=== PATIENT | female | born 1940 | race Caucasian/White ===

== ENCOUNTER → 2017-11-15 | Outpatient (CLI) | payer MEDICARE, BC ==
[~2017-11-15] MED LIST: ALEN70TA5 PO; bp med
== END | disposition home or self-care (01) ==
LOC: CFH 14:14 → EDSTATUS 15:30
PROVIDERS: ATTEND Internal Medicine Nephrology
DX: N28.1 Cyst of kidney, acquired (principal); N18.9 Chronic kidney disease, unspecified
CPT/HCPCS: 76770

== ENCOUNTER 2017-11-30 12:05 | Day surgery (SDC) | payer BC, MEDICARE ==
[~2017-11-30] VITALS: Ht 160 cm; Wt 66.1 kg
[2017-11-30] MEDS ORDERED: SODIUM CHLORIDE 0.9% 1,000 ML IV SCH (12:25)
[2017-11-30 12:31] VITALS: BP 166/77
[2017-11-30 13:00] LABS: PROTHROMBIN TIME 10.3 Seconds (9.6-11.5)
[2017-11-30] MEDS ORDERED: LIDOCAINE-MPF 1%, 5ML ONE (14:26)
[2017-11-30] MEDS ORDERED: FENTANYL PF 100 MCG/2ML ONE (14:32)
[2017-11-30] MEDS ORDERED: FLUMAZENIL 0.1 MG/1 ML, 5ML ONE (14:32)
[2017-11-30] MEDS ORDERED: NALOXONE 1 MG/ML, 2ML ONE (14:32)
[2017-11-30] MEDS ORDERED: MIDAZOLAM 1 MG/ML, 5ML ONE ×2 (14:32)
== END 2017-11-30 16:30 | disposition home or self-care (01) ==
LOC: OUT 12:05
PROVIDERS: ATTEND Internal Medicine Nephrology
DX: N26.9 Renal sclerosis, unspecified (principal); E11.22 Type 2 diabetes mellitus with diabetic chronic kidney disease; I12.9 Hypertensive chronic kidney disease with stage 1 through stage 4 chronic kidney disease, or unspecified chronic kidney disease; N18.9 Chronic kidney disease, unspecified; Z94.0 Kidney transplant status
CPT/HCPCS: 36415; 50200; 77012; 85610; 88300; 88329; 99156; 99157; J2250; J3010; J7030; J2310

== ENCOUNTER 2018-01-28 05:13 | Day surgery (SDC) | payer BC, MEDICARE ==
[~2018-01-28] VITALS: Ht 160 cm; Wt 59.6 kg
[2018-01-28] MEDS ORDERED: SODIUM CHLORIDE 0.9% 1,000 ML IV SCH (06:04)
[2018-01-28] MEDS ORDERED: ATOR40TA78 PO (06:19)
[2018-01-28] MEDS ORDERED: LIRA0.6P2 SQ (06:19)
[2018-01-28] MEDS ORDERED: ACAR100T9 PO (06:19)
[2018-01-28] MEDS ORDERED: FURO20TA3 PO (06:19)
[2018-01-28] MEDS ORDERED: LOSARTAN PO (06:19)
[2018-01-28 06:24] VITALS: BP 173/108
[2018-01-28] MEDS ORDERED: MIDAZOLAM 1 MG/ML, 2ML IV PRN (07:00)
[2018-01-28] MEDS ORDERED: INSULIN REGULAR 100 UNITS/ML, 3ML VIAL SQ-INSULIN ONE (07:00)
[2018-01-28] MEDS ORDERED: EPHEDRINE 50 MG/ML, 1ML IM PRN (07:00)
[2018-01-28] MEDS ORDERED: ONDANSETRON 2MG/ML, 2ML IV PRN (07:00)
[2018-01-28] MEDS ORDERED: FENTANYL PF 100 MCG/2ML IV PRN (07:00)
[2018-01-28] MEDS ORDERED: METOCLOPRAMIDE 5 MG/ML, 2ML IV PRN (07:00)
[2018-01-28] MEDS ORDERED: INSULIN SINGLE DOSE, ER SQ-INSULIN ONE ×2 (07:02→07:04)
[2018-01-28] MEDS ORDERED: LIDOCAINE 2% 100MG/5ML SYRINGE ONE (07:08)
[2018-01-28] MEDS ORDERED: PROPOFOL 10 MG/ML, 20ML ONE (07:08)
[2018-01-28] MEDS ORDERED: MIDAZOLAM 1 MG/ML, 2ML ONE (07:08)
[2018-01-28] MEDS ORDERED: HEPARIN 1,000 UNITS/ML, 10ML ONE (07:10)
[2018-01-28] MEDS ORDERED: PROTAMINE SULFATE 10 MG/ML, 5ML ONE (07:10)
[2018-01-28] MEDS ORDERED: THROMBIN 5,000 UNIT VIAL TP ONE (07:10)
[2018-01-28] MEDS ORDERED: BUPIVACAINE/PF-EPI 0.5% 1:200K ONE (07:10)
[2018-01-28 07:16] LABS: INTERNATIONAL NORMALIZED RATIO 0.98 (0.93-1.1); PROTHROMBIN TIME 10.4 Seconds (9.6-11.5)
[2018-01-28] MEDS ORDERED: LIDOCAINE/PF 1%, 30ML ONE (07:23)
[2018-01-28] MEDS ORDERED: CEFAZOLIN 1,000 MG ONE (07:24)
[2018-01-28] MEDS ORDERED: LIDOCAINE-MPF 2% ,5ML ONE (07:24)
[2018-01-28] MEDS ORDERED: GLYCOPYRROLATE 0.2MG/1ML, 5ML ONE (07:24)
[2018-01-28] MEDS ORDERED: DEXAMETHASONE 4 MG/ML, 1ML ONE (07:24)
[2018-01-28] MEDS ORDERED: LABETALOL 20 MG/4 ML ONE (09:01)
[2018-01-28] MEDS: LABETALOL 5MG/ML, 20ML IV PRN ×2 (09:02→09:11)
[2018-01-28] MEDS ORDERED: hydrALAzine 20 MG/ML, 1ML ONE (09:22)
[2018-01-28] MEDS ORDERED: hydrALAzine 20 MG/ML, 1ML IV PRN (09:30)
== END 2018-01-28 11:25 | disposition home or self-care (01) ==
LOC: OUT 05:13
PROVIDERS: ATTEND Surgery Vascular Surgery
DX: E11.22 Type 2 diabetes mellitus with diabetic chronic kidney disease (principal); I13.2 Hypertensive heart and chronic kidney disease with heart failure and with stage 5 chronic kidney disease, or end stage renal disease; I50.9 Heart failure, unspecified; N18.6 End stage renal disease
CPT/HCPCS: 36415; 36821; 80047; 82962; 85610; 85730; 93005; J0360; J0690; J1100; J1644; J2250; J2704; J3490; J7030; J2720

== ENCOUNTER 2019-01-13 05:08 | Inpatient (IN) | payer BC, MEDICARE ==
[~2019-01-13] VITALS: Ht 157.5 cm; Wt 64.0 kg
[2019-01-13] VITALS (12 sets, daily range): BP systolic 142–192; BP diastolic 61–92
[~2019-01-13 05:08] MED LIST changes: +ACAR100T9 PO; -ALEN70TA5 PO; +ALEN70TA6 PO; +ATOR40TA78 PO; +FURO20TA3 PO; +LIRA0.6P2 SQ; +LOSARTAN PO
[2019-01-13] MEDS ORDERED: PANTOPRAZOLE 80 MG in SODIUM CHLORIDE 0.9% 100 ML IV SCH (05:15)
[2019-01-13] MEDS ORDERED: SODIUM CHLORIDE FLUSH 10ML SYR IVF ONE (05:30)
[2019-01-13] MEDS ORDERED: FENTANYL PF 100 MCG/2ML ONE (05:45)
--- NOTE | 2019-01-13 05:52 | NUR ---
Patient brought to room by [facility]. Patient transferred from [facility] for a diagnosed GI Bleed. Patient reports having black tarry stool for two weeks. [facility] reports that [facility]'s emergency room gave the patient insulin with D50 for an elevated potassium. Patient was also given 2 grams Calcium Chloride, and a unit of O+ blood was initiated. Patient has a history of chronic kidney disease, and was last dialyzed on sunday. Patient is alert and oriented but reports pain in her abdomen. Patient was attached to a monitor, blood pressure, heart rate and pulsatile oxygen all within normal limits (see triage flowsheet) additional IV started by charge account identification clerk, labs drawn. Awaiting results.
[2019-01-13] MEDS ORDERED: FENTANYL PF 100 MCG/2ML IVPush ONE ×2 (06:00→09:30)
[2019-01-13 06:04] LABS: INTERNATIONAL NORMALIZED RATIO 1.08 (0.93-1.1); PROTHROMBIN TIME 11.3 Seconds (9.6-11.5)
[2019-01-13 06:06] LABS: ALANINE AMINOTRANSFERASE 28 U/L (12-78); ALBUMIN 2.7 g/dL (3.4-5.0); ANION GAP 16 mmol/L (5-15); CALCIUM 8.8 mg/dL (8.5-10.1); CHLORIDE 101 mmol/L (98-107)
[2019-01-13 06:08] LABS: ALKALINE PHOSPHATASE 88 U/L (45-117); BILIRUBIN,TOTAL 0.4 mg/dL (0.2-1.0); TOTAL PROTEIN 5.6 g/dL (6.4-8.2)
--- NOTE | 2019-01-13 06:40 | NUR ---
RN returned to bedside, blood unit has finished infusing. Vital signs taken, wnl. (see Vitals[employer]s flowsheet at ~0630)
[2019-01-13 06:54] LABS: MEAN CORPUSCULAR HEMOGLOBIN 30.5 pg (27.0-34.8); MEAN CORPUSCULAR VOLUME 92.5 fL (80-100); MEAN PLATELET VOLUME 7.6 fL (7.4-10.4); PLATELET COUNT 186 x10^3/uL (130-400); RED BLOOD COUNT 2.25 x10^6/uL (3.82-5.3); RED CELL DISTRIBUTION WIDTH 31.3 % (9.6-15.2)
--- NOTE | 2019-01-13 06:56 | NUR ---
REPORT RECEIVED FROM VIC ROJO.
[2019-01-13] MEDS ORDERED: ALBUTEROL SULFATE 2.5 MG/3 ML NPPB ONE (07:00)
[2019-01-13] MEDS ORDERED: CALCIUM GLUCONATE 4.6 MEQ/10 ML IVPush ONE (07:00)
--- NOTE | 2019-01-13 07:08 | NUR ---
bg 103 at this time.
[2019-01-13 07:09] LABS: BASOPHILS # (AUTO) 0.04 x10^3/uL (0-0.1); BASOPHILS % (AUTO) 1 % (0-1); EOSINOPHILS # (AUTO) 0.18 x10^3/uL (0-0.4); EOSINOPHILS % (AUTO) 3 % (1-7); LYMPHOCYTES # (AUTO) 2.24 x10^3/uL (1-3.4); LYMPHOCYTES % (AUTO) 32 % (22-44); MD SCAN; MONOCYTES # (AUTO) 0.42 x10^3/uL (0.2-0.8); MONOCYTES % (AUTO) 6 % (2-9); NEUTROPHILS # (AUTO) 4.13 x10^3/uL (1.8-6.8); NEUTROPHILS % (AUTO) 59 % (42-75)
[2019-01-13] MEDS ORDERED: ALBUTEROL SULFATE 2.5 MG/3 ML ONE (07:14)
[2019-01-13] MEDS ORDERED: CALCIUM GLUCONATE 4.6 MEQ/10 ML ONE (07:38)
--- NOTE | 2019-01-13 07:49 | NUR ---
pt medicated per emar. pt tolerated well.
[2019-01-13] MEDS ORDERED: ARANESP 100 MCG/ML **ESRD SQ SCH (08:00)
[2019-01-13] MEDS ORDERED: ONDANSETRON 2MG/ML, 2ML IVPush PRN (09:00)
[2019-01-13] MEDS: FENTANYL PF 100 MCG/2ML IV PRN ×2 (09:06→14:15)
[2019-01-13] MEDS: ACETAMINOPHEN 325 MG TABLET PO PRN ×2 (09:13→20:45)
[2019-01-13 09:14] LABS: ANION GAP 13 mmol/L (5-15); CALCIUM 8.8 mg/dL (8.5-10.1); CHLORIDE 105 mmol/L (98-107); CREATININE 5.09 mg/dL (0.55-1.02)
[2019-01-13 09:43] LABS: MEAN CORPUSCULAR HEMOGLOBIN 31.9 pg (27.0-34.8); MEAN CORPUSCULAR HGB CONC 34.5 g/dL (32.4-35.8); MEAN CORPUSCULAR VOLUME 92.4 fL (80-100); MEAN PLATELET VOLUME 6.8 fL (7.4-10.4); PLATELET COUNT 174 x10^3/uL (130-400); RED BLOOD COUNT 1.87 x10^6/uL (3.82-5.3); RED CELL DISTRIBUTION WIDTH 31.8 % (9.6-15.2)
[2019-01-13 09:48] LABS: BASOPHILS # (AUTO) 0.04 x10^3/uL (0-0.1); BASOPHILS % (AUTO) 1 % (0-1); EOSINOPHILS # (AUTO) 0.19 x10^3/uL (0-0.4); EOSINOPHILS % (AUTO) 4 % (1-7); LYMPHOCYTES # (AUTO) 1.69 x10^3/uL (1-3.4); LYMPHOCYTES % (AUTO) 31 % (22-44); MD SCAN; MONOCYTES # (AUTO) 0.24 x10^3/uL (0.2-0.8); MONOCYTES % (AUTO) 4 % (2-9); NEUTROPHILS # (AUTO) 3.38 x10^3/uL (1.8-6.8); NEUTROPHILS % (AUTO) 61 % (42-75)
[2019-01-13] MEDS ORDERED: LABETALOL 5MG/ML, 20ML IVPush PRN (14:00)
[2019-01-13 15:14] LABS: MEAN CORPUSCULAR HEMOGLOBIN 31.4 pg (27.0-34.8); MEAN CORPUSCULAR HGB CONC 34.3 g/dL (32.4-35.8); MEAN CORPUSCULAR VOLUME 91.6 fL (80-100); MEAN PLATELET VOLUME 6.9 fL (7.4-10.4); PLATELET COUNT 148 x10^3/uL (130-400); RED BLOOD COUNT 1.96 x10^6/uL (3.82-5.3)
[2019-01-13 15:21] LABS: ALANINE AMINOTRANSFERASE 24 U/L (12-78); ALBUMIN 2.3 g/dL (3.4-5.0); ANION GAP 7 mmol/L (5-15); CALCIUM 8.2 mg/dL (8.5-10.1); CHLORIDE 107 mmol/L (98-107)
[2019-01-13 15:23] LABS: ALKALINE PHOSPHATASE 53 U/L (45-117); BILIRUBIN,TOTAL 0.5 mg/dL (0.2-1.0); TOTAL PROTEIN 4.6 g/dL (6.4-8.2)
[2019-01-13 15:25] LABS: ALBUMIN 2.3 g/dL (3.4-5.0); ANION GAP 8 mmol/L (5-15); CHLORIDE 107 mmol/L (98-107); CREATININE 2.79 mg/dL (0.55-1.02)
[2019-01-13 16:24] LABS: BASOPHILS # (AUTO) 0.04 x10^3/uL (0-0.1); BASOPHILS % (AUTO) 1 % (0-1); EOSINOPHILS # (AUTO) 0.19 x10^3/uL (0-0.4); EOSINOPHILS % (AUTO) 3 % (1-7); LYMPHOCYTES # (AUTO) 1.81 x10^3/uL (1-3.4); LYMPHOCYTES % (AUTO) 32 % (22-44); MD SCAN; MONOCYTES # (AUTO) 0.35 x10^3/uL (0.2-0.8); MONOCYTES % (AUTO) 6 % (2-9); NEUTROPHILS # (AUTO) 3.31 x10^3/uL (1.8-6.8); NEUTROPHILS % (AUTO) 58 % (42-75)
[2019-01-13] MEDS ORDERED: POTASSIUM CHLORIDE 20 MEQ in SODIUM CHLORIDE 0.9% 250 ML IV ONE (17:00)
[2019-01-13] MEDS ORDERED: DEXTROSE 50%, 50ML SYRINGE IVPush PRN (17:00)
[2019-01-13] MEDS ORDERED: DEXTROSE 4 GM TAB.CHEW PO PRN (17:00)
[2019-01-13] MEDS ORDERED: POTASSIUM CHLORIDE 20 MEQ TAB.ER.PRT PO ONE (17:00)
[2019-01-13] MEDS ORDERED: GLUCAGON 1 MG IM PRN (17:00)
[2019-01-13] MEDS: PANTOPRAZOLE 80 MG in SODIUM CHLORIDE 0.9% 100 ML IV SCH (17:50)
[2019-01-13] MEDS: FUROSEMIDE 40 MG TABLET PO SCH (20:45)
[2019-01-13] MEDS: SODIUM CHLORIDE FLUSH 10ML SYR IVF SCH (20:45)
[2019-01-13] MEDS: INSULIN LISPRO 100 UNITS/ML, PEN SQ-INSULIN SCH (20:49)
[2019-01-14 01:02] VITALS: BP 160/74
[2019-01-14] MEDS: PANTOPRAZOLE 80 MG in SODIUM CHLORIDE 0.9% 100 ML IV SCH (03:35)
[2019-01-14] MEDS: FENTANYL PF 100 MCG/2ML IV PRN (04:02)
[2019-01-14 05:33] LABS: ANION GAP 9 mmol/L (5-15); CALCIUM 8.4 mg/dL (8.5-10.1); CHLORIDE 107 mmol/L (98-107); CREATININE 3.88 mg/dL (0.55-1.02)
[2019-01-14 07:40] VITALS: BP 141/52
[2019-01-14] MEDS: LOSARTAN 50MG TABLET PO SCH (08:05)
[2019-01-14] MEDS: FUROSEMIDE 40 MG TABLET PO SCH ×2 (08:05→20:30)
[2019-01-14] MEDS: SODIUM CHLORIDE FLUSH 10ML SYR IVF SCH ×2 (08:05→20:31)
[2019-01-14] MEDS: ATORVASTATIN 20 MG TABLET PO SCH (08:05)
[2019-01-14] MEDS: INSULIN LISPRO 100 UNITS/ML, PEN SQ-INSULIN SCH ×4 (08:18→20:31)
[2019-01-14] MEDS ORDERED: hydrALAzine 20 MG/ML, 1ML ONE (08:39)
[2019-01-14] MEDS ORDERED: ONDANSETRON 2MG/ML, 2ML ONE (08:39)
[2019-01-14] MEDS ORDERED: KETAMINE 10 MG/ML, 20ML ONE (08:39)
[2019-01-14] MEDS ORDERED: HALOPERIDOL 5 MG/ML ONE (09:04)
[2019-01-14] MEDS ORDERED: FENTANYL PF 100 MCG/2ML ONE (09:04)
[2019-01-14] MEDS ORDERED: HALOPERIDOL 5 MG/ML IV PRN (09:30)
[2019-01-14] MEDS ORDERED: HYDROmorphone 2 MG/ML, 1ML IVPush PRN (09:30)
[2019-01-14] MEDS ORDERED: FENTANYL PF 100 MCG/2ML IV PRN (09:30)
[2019-01-14] MEDS ORDERED: MEPERIDINE/PF 25MG/ML,1ML IVPush PRN (09:30)
[2019-01-14] MEDS ORDERED: hydrALAzine 20 MG/ML, 1ML IV PRN (09:30)
[2019-01-14 10:12] VITALS: BP 142/53
[2019-01-14] MEDS: ACETAMINOPHEN 325 MG TABLET PO PRN ×2 (12:21→18:45)
[2019-01-14 13:31] VITALS: BP 156/72
[2019-01-14 19:30] VITALS: BP 152/76
[2019-01-14] MEDS: PANTOPRAZOLE 40 MG IV IVPush SCH (20:30)
[2019-01-15] VITALS (8 sets, daily range): BP systolic 147–187; BP diastolic 55–77
[2019-01-15] MEDS: ACETAMINOPHEN 325 MG TABLET PO PRN ×5 (00:13→22:17)
[2019-01-15 05:27] LABS: ANION GAP 14 mmol/L (5-15); CALCIUM 8.4 mg/dL (8.5-10.1); CHLORIDE 106 mmol/L (98-107); CREATININE 5.34 mg/dL (0.55-1.02)
[2019-01-15 05:28] LABS: MEAN CORPUSCULAR HEMOGLOBIN 31.4 pg (27.0-34.8); MEAN CORPUSCULAR HGB CONC 34.3 g/dL (32.4-35.8); MEAN CORPUSCULAR VOLUME 91.5 fL (80-100); MEAN PLATELET VOLUME 6.9 fL (7.4-10.4); PLATELET COUNT 166 x10^3/uL (130-400); RED BLOOD COUNT 2.34 x10^6/uL (3.82-5.3); RED CELL DISTRIBUTION WIDTH 24.3 % (9.6-15.2)
[2019-01-15 05:52] LABS: BASOPHILS # (AUTO) 0.04 x10^3/uL (0-0.1); BASOPHILS % (AUTO) 1 % (0-1); EOSINOPHILS # (AUTO) 0.37 x10^3/uL (0-0.4); EOSINOPHILS % (AUTO) 5 % (1-7); LYMPHOCYTES # (AUTO) 2.35 x10^3/uL (1-3.4); LYMPHOCYTES % (AUTO) 33 % (22-44); MD SCAN; MONOCYTES # (AUTO) 0.46 x10^3/uL (0.2-0.8); MONOCYTES % (AUTO) 6 % (2-9); NEUTROPHILS % (AUTO) 56 % (42-75)
[2019-01-15] MEDS: INSULIN LISPRO 100 UNITS/ML, PEN SQ-INSULIN SCH ×4 (09:00→20:52)
[2019-01-15] MEDS: FUROSEMIDE 40 MG TABLET PO SCH ×2 (09:03→20:52)
[2019-01-15] MEDS: LOSARTAN 50MG TABLET PO SCH (09:04)
[2019-01-15] MEDS: PANTOPRAZOLE 40 MG IV IVPush SCH ×2 (09:05→20:52)
[2019-01-15] MEDS: SODIUM CHLORIDE FLUSH 10ML SYR IVF SCH ×2 (09:10→20:52)
[2019-01-15] MEDS: ATORVASTATIN 20 MG TABLET PO SCH (20:52)
[2019-01-15] MEDS: hydrALAzine 20 MG/ML, 1ML IVPush PRN (22:32)
[2019-01-16 00:31] VITALS: BP 130/57
[2019-01-16 04:41] LABS: MEAN CORPUSCULAR HEMOGLOBIN 30.7 pg (27.0-34.8); MEAN CORPUSCULAR HGB CONC 33.9 g/dL (32.4-35.8); MEAN CORPUSCULAR VOLUME 90.6 fL (80-100); PLATELET COUNT 150 x10^3/uL (130-400); RED BLOOD COUNT 2.46 x10^6/uL (3.82-5.3); RED CELL DISTRIBUTION WIDTH 25.1 % (9.6-15.2)
[2019-01-16 04:53] LABS: ANION GAP 7 mmol/L (5-15); CALCIUM 7.8 mg/dL (8.5-10.1); CHLORIDE 106 mmol/L (98-107); CREATININE 3.04 mg/dL (0.55-1.02)
[2019-01-16 05:43] LABS: BASOPHILS # (AUTO) 0.03 x10^3/uL (0-0.1); BASOPHILS % (AUTO) 1 % (0-1); EOSINOPHILS # (AUTO) 0.25 x10^3/uL (0-0.4); EOSINOPHILS % (AUTO) 4 % (1-7); LYMPHOCYTES # (AUTO) 1.52 x10^3/uL (1-3.4); LYMPHOCYTES % (AUTO) 27 % (22-44); MD SCAN; MONOCYTES # (AUTO) 0.34 x10^3/uL (0.2-0.8); MONOCYTES % (AUTO) 6 % (2-9); NEUTROPHILS # (AUTO) 3.56 x10^3/uL (1.8-6.8); NEUTROPHILS % (AUTO) 63 % (42-75)
[2019-01-16] MEDS: OMEPRAZOLE 20 MG CAPSULE.DR PO SCH ×2 (06:13→16:17)
[2019-01-16 07:32] VITALS: BP 150/63
[2019-01-16] MEDS: INSULIN LISPRO 100 UNITS/ML, PEN SQ-INSULIN SCH ×4 (08:56→20:46)
[2019-01-16] MEDS: SODIUM CHLORIDE FLUSH 10ML SYR IVF SCH ×2 (08:57→20:51)
[2019-01-16] MEDS: LOSARTAN 50MG TABLET PO SCH (08:57)
[2019-01-16] MEDS: FUROSEMIDE 40 MG TABLET PO SCH ×2 (08:57→20:51)
[2019-01-16] MEDS: ATORVASTATIN 20 MG TABLET PO SCH (08:58)
[2019-01-16] MEDS: ACETAMINOPHEN 325 MG TABLET PO PRN ×2 (12:11→20:59)
[2019-01-16 13:04] VITALS: BP 161/61
[2019-01-16] MEDS ORDERED: GOLYTELY 4,000ML ORAL.SOL PO ONE (17:00)
[2019-01-16 20:22] VITALS: BP 180/89
[2019-01-16] MEDS: hydrALAzine 20 MG/ML, 1ML IVPush PRN (20:50)
[2019-01-16 22:26] VITALS: BP 186/66
[2019-01-16] MEDS ORDERED: LABETALOL 5 MG/ML SYR. (IV ONLY) IVPush PRN (23:00)
[2019-01-17] VITALS (8 sets, daily range): BP systolic 155–182; BP diastolic 62–72
[2019-01-17] MEDS: OMEPRAZOLE 20 MG CAPSULE.DR PO SCH ×2 (01:06→15:51)
[2019-01-17] MEDS: ACETAMINOPHEN 325 MG TABLET PO PRN ×3 (01:13→21:09)
[2019-01-17 06:48] LABS: MEAN CORPUSCULAR HEMOGLOBIN 30.6 pg (27.0-34.8); MEAN CORPUSCULAR HGB CONC 33.1 g/dL (32.4-35.8); MEAN CORPUSCULAR VOLUME 92.3 fL (80-100); MEAN PLATELET VOLUME 6.7 fL (7.4-10.4); PLATELET COUNT 173 x10^3/uL (130-400); RED BLOOD COUNT 2.56 x10^6/uL (3.82-5.3); RED CELL DISTRIBUTION WIDTH 25.9 % (9.6-15.2)
[2019-01-17 07:00] LABS: ANION GAP 9 mmol/L (5-15); CALCIUM 8.4 mg/dL (8.5-10.1); CHLORIDE 105 mmol/L (98-107); CREATININE 4.34 mg/dL (0.55-1.02)
[2019-01-17] MEDS: INSULIN LISPRO 100 UNITS/ML, PEN SQ-INSULIN SCH ×4 (07:42→21:00)
[2019-01-17] MEDS: SODIUM CHLORIDE FLUSH 10ML SYR IVF SCH ×2 (07:42→21:10)
[2019-01-17 07:48] LABS: MD MORPH REVIEW ONLY
[2019-01-17 07:49] LABS: BASOPHILS # (AUTO) 0.02 x10^3/uL (0-0.1); BASOPHILS % (AUTO) 1 % (0-1); EOSINOPHILS # (AUTO) 0.28 x10^3/uL (0-0.4); EOSINOPHILS % (AUTO) 6 % (1-7); LYMPHOCYTES # (AUTO) 0.69 x10^3/uL (1-3.4); LYMPHOCYTES % (AUTO) 16 % (22-44); MONOCYTES # (AUTO) 0.42 x10^3/uL (0.2-0.8); MONOCYTES % (AUTO) 9 % (2-9); NEUTROPHILS # (AUTO) 3.01 x10^3/uL (1.8-6.8); NEUTROPHILS % (AUTO) 68 % (42-75)
[2019-01-17 07:50] LABS: ANISOCYTOSIS 2+; HYPOCHROMIA 1+; POLYCHROMASIA 1+
[2019-01-17 07:51] LABS: <PLATELET ESTIMATE> ADEQUATE; <PLT MORPHOLOGY> NORMAL PLT MORPH; OVALOCYTES 1+; SPHEROCYTES 1+
[2019-01-17] MEDS: hydrALAzine 20 MG/ML, 1ML IVPush PRN ×2 (08:52→21:10)
[2019-01-17] MEDS: ATORVASTATIN 20 MG TABLET PO SCH (09:00)
[2019-01-17] MEDS: LOSARTAN 50MG TABLET PO SCH (09:00)
[2019-01-17] MEDS: FUROSEMIDE 40 MG TABLET PO SCH ×2 (09:00→21:10)
[2019-01-17] MEDS ORDERED: PROPOFOL 50 ML ONE (09:52)
[2019-01-17] MEDS ORDERED: PROPOFOL 10 MG/ML, 20ML ONE (10:25)
[2019-01-17] MEDS ORDERED: PROMETHAZINE 25 MG/ML, 1ML IV PRN (11:00)
[2019-01-17] MEDS ORDERED: DIAZEPAM 5 MG/ML, 2ML IVPush PRN (11:00)
[2019-01-17] MEDS ORDERED: PROMETHAZINE 12.5 MG SUPP PR PRN (11:00)
[2019-01-17] MEDS ORDERED: LABETALOL 5MG/ML, 20ML IV PRN (11:00)
[2019-01-17] MEDS ORDERED: MIDAZOLAM 1 MG/ML, 2ML IV PRN (11:00)
[2019-01-17] MEDS ORDERED: HYDROmorphone 2 MG/ML, 1ML IVPush PRN (11:00)
[2019-01-17] MEDS ORDERED: ALBUTEROL SULFATE 2.5 MG/3 ML NPPB PRN (11:00)
[2019-01-17] MEDS ORDERED: OXYcodone 5 MG/5 ML ORAL.SOL UDC PO PRN (11:00)
[2019-01-17] MEDS: SUCRALFATE 1 GM/10 ML UDC PO SCH ×3 (11:00→21:10)
[2019-01-17] MEDS ORDERED: FENTANYL PF 100 MCG/2ML IV PRN (11:00)
[2019-01-17] MEDS ORDERED: EPHEDRINE 50 MG/ML, 1ML IVPush PRN (11:00)
[2019-01-17] MEDS ORDERED: HALOPERIDOL 5 MG/ML IV PRN (11:00)
[2019-01-17] MEDS ORDERED: ONDANSETRON ODT 8 MG PO PRN (11:00)
[2019-01-17] MEDS ORDERED: hydrALAzine 20 MG/ML, 1ML IV PRN (11:00)
[2019-01-17] MEDS ORDERED: ONDANSETRON 2MG/ML, 2ML IV PRN (11:00)
[2019-01-17] MEDS ORDERED: MEPERIDINE/PF 25MG/ML,1ML IVPush PRN (11:00)
[2019-01-17] MEDS ORDERED: FENTANYL PF 100 MCG/2ML IV ONE (13:00)
[2019-01-18] VITALS (7 sets, daily range): BP systolic 148–186; BP diastolic 67–79
[2019-01-18] MEDS: FENTANYL PF 100 MCG/2ML IV PRN ×2 (01:52→21:08)
[2019-01-18] MEDS: OMEPRAZOLE 20 MG CAPSULE.DR PO SCH ×2 (06:13→16:59)
[2019-01-18 06:37] LABS: ANION GAP 6 mmol/L (5-15); CALCIUM 8.4 mg/dL (8.5-10.1); CHLORIDE 108 mmol/L (98-107); CREATININE 3.07 mg/dL (0.55-1.02)
[2019-01-18] MEDS: INSULIN LISPRO 100 UNITS/ML, PEN SQ-INSULIN SCH ×4 (07:00→20:23)
[2019-01-18] MEDS: SUCRALFATE 1 GM/10 ML UDC PO SCH ×4 (08:39→20:30)
[2019-01-18] MEDS: FUROSEMIDE 40 MG TABLET PO SCH ×2 (08:39→20:30)
[2019-01-18] MEDS: SODIUM CHLORIDE FLUSH 10ML SYR IVF SCH ×2 (08:39→20:30)
[2019-01-18] MEDS: LOSARTAN 50MG TABLET PO SCH (08:39)
[2019-01-18] MEDS: ATORVASTATIN 20 MG TABLET PO SCH (08:39)
[2019-01-18] MEDS ORDERED: SUCR1TAB PO (12:36)
[2019-01-18] MEDS ORDERED: OMEP-110 PO (12:36)
[2019-01-18] MEDS: CARVEDILOL 6.25 MG TABLET PO SCH (17:00)
[2019-01-18] MEDS: ACETAMINOPHEN 325 MG TABLET PO PRN (18:28)
[2019-01-19 01:27] VITALS: BP 184/72
[2019-01-19] MEDS: hydrALAzine 20 MG/ML, 1ML IVPush PRN (01:34)
[2019-01-19 02:00] VITALS: BP 148/77
[2019-01-19] MEDS: OMEPRAZOLE 20 MG CAPSULE.DR PO SCH (04:37)
[2019-01-19] MEDS: CARVEDILOL 6.25 MG TABLET PO SCH (04:38)
[2019-01-19 04:40] VITALS: BP 176/77
[2019-01-19 06:33] LABS: CHLORIDE 107 mmol/L (98-107)
[2019-01-19 06:39] LABS: ANION GAP 8 mmol/L (5-15); CALCIUM 8.2 mg/dL (8.5-10.1); CREATININE 4.27 mg/dL (0.55-1.02)
[2019-01-19] MEDS: INSULIN LISPRO 100 UNITS/ML, PEN SQ-INSULIN SCH (07:00)
[2019-01-19 07:26] VITALS: BP 183/71
[2019-01-19] MEDS ORDERED: POLYETHYLENE GLYCOL 17 GM PACKET PO ONE (07:30)
[2019-01-19] MEDS ORDERED: LOSARTAN 50MG TABLET PO SCH (09:00)
[2019-01-19] MEDS: SODIUM CHLORIDE FLUSH 10ML SYR IVF SCH (09:00)
[2019-01-19] MEDS: FUROSEMIDE 40 MG TABLET PO SCH (10:01)
[2019-01-19] MEDS: SUCRALFATE 1 GM/10 ML UDC PO SCH (10:01)
[2019-01-19] MEDS: ATORVASTATIN 20 MG TABLET PO SCH (10:01)
[2019-01-19] MEDS: FENTANYL PF 100 MCG/2ML IV PRN (10:02)
[2019-01-19 12:16] VITALS: BP 153/71
== END 2019-01-19 12:15 | disposition home or self-care (01) | DRG 377 ==
LOC: ED 06:36 → EDIP 06:46 → 5SO 08:54 → 4WST 01-14 11:29
PROVIDERS: ADMIT Family Medicine; ATTEND Family Medicine
PROC: 30233N1 Transfusion of Nonautologous Red Blood Cells into Peripheral Vein, Percutaneous Approach (ICD-10-PCS; 2019-01-13)
PROC: 5A1D70Z Performance of Urinary Filtration, Intermittent, Less than 6 Hours Per Day (ICD-10-PCS; 2019-01-13)
PROC: 0DJ08ZZ Inspection of Upper Intestinal Tract, Via Natural or Artificial Opening Endoscopic (ICD-10-PCS; principal; 2019-01-14 08:30)
PROC: 5A1D70Z Performance of Urinary Filtration, Intermittent, Less than 6 Hours Per Day (ICD-10-PCS; 2019-01-15)
PROC: 0DJ08ZZ Inspection of Upper Intestinal Tract, Via Natural or Artificial Opening Endoscopic (ICD-10-PCS; 2019-01-17)
PROC: 0DJD8ZZ Inspection of Lower Intestinal Tract, Via Natural or Artificial Opening Endoscopic (ICD-10-PCS; 2019-01-17)
PROC: 5A1D70Z Performance of Urinary Filtration, Intermittent, Less than 6 Hours Per Day (ICD-10-PCS; 2019-01-17)
DX: K26.4 Chronic or unspecified duodenal ulcer with hemorrhage (principal); N18.6 End stage renal disease; I12.0 Hypertensive chronic kidney disease with stage 5 chronic kidney disease or end stage renal disease; N17.9 Acute kidney failure, unspecified; D62 Acute posthemorrhagic anemia; E87.2 Acidosis; K31.5 Obstruction of duodenum; E46 Unspecified protein-calorie malnutrition; E87.5 Hyperkalemia; K62.3 Rectal prolapse; K25.4 Chronic or unspecified gastric ulcer with hemorrhage; K57.30 Diverticulosis of large intestine without perforation or abscess without bleeding; E11.22 Type 2 diabetes mellitus with diabetic chronic kidney disease; G89.29 Other chronic pain; K44.9 Diaphragmatic hernia without obstruction or gangrene; D63.1 Anemia in chronic kidney disease; E78.5 Hyperlipidemia, unspecified; Z90.49 Acquired absence of other specified parts of digestive tract; Z99.2 Dependence on renal dialysis; Z87.891 Personal history of nicotine dependence; Z72.89 Other problems related to lifestyle; Z68.25 Body mass index [BMI] 25.0-25.9, adult; Z88.5 Allergy status to narcotic agent; Z82.5 Family history of asthma and other chronic lower respiratory diseases; Z83.3 Family history of diabetes mellitus; Z82.49 Family history of ischemic heart disease and other diseases of the circulatory system; Z79.899 Other long term (current) drug therapy
CPT/HCPCS: 36415; 36430; 80048; 80053; 80069; 82962; 83605; 85014; 85018; 85025; 85610; 85730; 86705; 86706; 86850; 86900; 86923; 87338; 87340; 90935; 93005; 93978; 99291; G0378; J0882; J2405; J2704; J3010; C9113; J0360; J0610; J1630; P9016

== ENCOUNTER 2019-02-07 10:39 | Emergency (ER) | payer BC, MEDICARE ==
[~2019-02-07] VITALS: Ht 157.5 cm; Wt 55.0 kg
[~2019-02-07 10:39] MED LIST changes: +OMEP-110 PO; +SUCR1TAB PO
--- NOTE | 2019-02-07 11:14 | NUR ---
PT WC'D TO ROOM 31 W/ C/O FEELING SLIGHTLY MORE FATIGUED THAN NORMAL. STATES SHE WAS AT DIALYSIS THIS MORNING AND FINISHED JENARO TREATMENT BUT WAS TOLD HER HGB WAS 6.9 AND TO COME TO ED AFTER DIALYSIS. PT APPEARS PALE. PER SHE LOOKS ABOUT THE SAME. PT RESTING ON GURNEY. NADN. MONITORS APPLIED. WARM BLANKET PROVIDED.
[2019-02-07] MEDS ORDERED: SODIUM CHLORIDE FLUSH 10ML SYR IVF ONE (12:00)
--- NOTE | 2019-02-07 12:05 | NUR ---
PT RESTING ON [place]. VSS. REPORT GIVEN TO DARREL SANTORO.
--- NOTE | 2019-02-07 12:08 | NUR ---
RECEIVED REPORT FROM FADI ROJO. ASSUMING CARE AT THIS TIME.
[2019-02-07 13:08] VITALS: BP 155/65
[2019-02-07 13:23] VITALS: BP 143/62
--- NOTE | 2019-02-07 13:23 | NUR ---
BLOOD VERIFIED BY SECOND RN. BLOOD RUNNING. NO ADVERSE EFFECTS NOTED. PT RESTING ON [facility].
[2019-02-07 14:23] VITALS: BP 143/53
--- NOTE | 2019-02-07 14:24 | NUR ---
PT RESTING ON [place]. TELMA. BLOOD INFUSING.
[2019-02-07 14:43] VITALS: BP 157/63
--- NOTE | 2019-02-07 14:45 | NUR ---
BLOOD TRANSFUSION COMPLETE. NO ADVERSE REACTION NOTED. 15 MINUTE VS COMPLETE. PT STATES SHE FEELS BETTER. CHART UP FOR RECHECK.
== END 2019-02-07 15:10 | disposition home or self-care (01) ==
LOC: ED 15:04
DX: D63.1 Anemia in chronic kidney disease (principal); E11.22 Type 2 diabetes mellitus with diabetic chronic kidney disease; I12.0 Hypertensive chronic kidney disease with stage 5 chronic kidney disease or end stage renal disease; N18.6 End stage renal disease; E78.5 Hyperlipidemia, unspecified; Z99.2 Dependence on renal dialysis
CPT/HCPCS: 36415; 36430; 85014; 85018; 86850; 86900; 86923; 99285; P9016

== ENCOUNTER 2019-02-10 09:47 | Inpatient (IN) | payer BC, MEDICARE ==
[2019-02-10] VITALS (11 sets, daily range): BP systolic 140–184; BP diastolic 54–95
[~2019-02-10] VITALS: Ht 157.5 cm; Wt 69.1 kg
[2019-02-10] MEDS ORDERED: SODIUM CHLORIDE 0.9% 1,000 ML IV ONE (10:09)
[2019-02-10] MEDS ORDERED: SODIUM CHLORIDE 0.9% 1,000ML IVBOLUS ONE (10:30)
[2019-02-10] MEDS ORDERED: PANTOPRAZOLE 40 MG IV IVPush ONE (10:30)
[2019-02-10] MEDS ORDERED: SODIUM CHLORIDE FLUSH 10ML SYR IVF ONE (10:30)
[2019-02-10 11:09] LABS: MEAN CORPUSCULAR HGB CONC 33.4 g/dL (32.4-35.8); MEAN PLATELET VOLUME 7.3 fL (7.4-10.4); PLATELET COUNT 179 x10^3/uL (130-400); RED BLOOD COUNT 1.72 x10^6/uL (3.82-5.3); RED CELL DISTRIBUTION WIDTH 22.9 % (9.6-15.2)
[2019-02-10 11:14] LABS: ALANINE AMINOTRANSFERASE 20 U/L (12-78); ALBUMIN 2.7 g/dL (3.4-5.0); ANION GAP 8 mmol/L (5-15); CALCIUM 8.2 mg/dL (8.5-10.1); CHLORIDE 103 mmol/L (98-107); CREATININE 3.94 mg/dL (0.55-1.02)
[2019-02-10 11:17] LABS: ALKALINE PHOSPHATASE 107 U/L (45-117); BILIRUBIN,TOTAL 0.3 mg/dL (0.2-1.0); TOTAL PROTEIN 5.8 g/dL (6.4-8.2)
--- NOTE | 2019-02-10 11:27 | NUR ---
Pt transported on gurney from room to CT.
[2019-02-10 11:31] LABS: BASOPHILS # (AUTO) 0.03 x10^3/uL (0-0.1); BASOPHILS % (AUTO) 1 % (0-1); EOSINOPHILS # (AUTO) 0.31 x10^3/uL (0-0.4); EOSINOPHILS % (AUTO) 6 % (1-7); LYMPHOCYTES # (AUTO) 1.57 x10^3/uL (1-3.4); LYMPHOCYTES % (AUTO) 29 % (22-44); MD SCAN; MONOCYTES % (AUTO) 9 % (2-9); NEUTROPHILS # (AUTO) 3.02 x10^3/uL (1.8-6.8); NEUTROPHILS % (AUTO) 56 % (42-75)
[2019-02-10 11:37] LABS: INTERNATIONAL NORMALIZED RATIO 1.04 (0.93-1.1); PROTHROMBIN TIME 10.9 Seconds (9.6-11.5)
[2019-02-10] MEDS ORDERED: PANTOPRAZOLE 40 MG IV ONE (11:51)
[2019-02-10] MEDS ORDERED: OMNIPAQUE 350 MG/ML, 100ML BOTTLE ONE (11:53)
--- NOTE | 2019-02-10 11:56 | NUR ---
Purple slip sent to Blood Bank per order.
[2019-02-10] MEDS ORDERED: SODIUM CHLORIDE FLUSH 10ML SYR IVF PRN (12:00)
[2019-02-10] MEDS ORDERED: ONDANSETRON 2MG/ML, 2ML ONE (12:07)
[2019-02-10] MEDS ORDERED: MORPHINE SULFATE 4 MG/ML, 1ML ONE (12:07)
[2019-02-10] MEDS ORDERED: ONDANSETRON 2MG/ML, 2ML IVPush ONE (12:30)
[2019-02-10] MEDS ORDERED: MORPHINE SULFATE 4 MG/ML, 1ML IVPush PRN (12:30)
[2019-02-10] MEDS ORDERED: ARANESP 200 MCG/ML **ESRD SQ SCH (12:30)
--- NOTE | 2019-02-10 12:42 | NUR ---
Provided report to DARREL Ho. All questions answered. Pt ready to transfer from ED to floor.
[2019-02-10] MEDS ORDERED: GOLYTELY 4,000ML ORAL.SOL PO ONE (13:00)
[2019-02-10 13:10] LABS: CALCIUM 8.2 mg/dL (8.5-10.1)
[2019-02-10] MEDS ORDERED: LISI-167 PO (15:03)
[2019-02-10] MEDS ORDERED: ROPI0.254 PO (15:03)
[2019-02-10] MEDS ORDERED: CARV6.25 PO (15:03)
[2019-02-10] MEDS: SUCRALFATE 1 GM TABLET PO SCH ×2 (16:00→20:25)
[2019-02-10] MEDS: LIDODERM 5% PATCH TD PRN (16:42)
[2019-02-10 17:48] LABS: ABSOLUTE RETICS # 0.055 x10^6/uL (0.5-2.5); RED BLOOD COUNT 2.57 x10^6/uL (3.82-5.3); RETICULOCYTE COUNT % 2.12 % (0.5-1.5)
[2019-02-10] MEDS ORDERED: GOLYTELY 4,000ML ORAL.SOL ONE (18:26)
[2019-02-10] MEDS: CARVEDILOL 6.25 MG TABLET PO SCH (18:41)
[2019-02-10] MEDS: ROPINIROLE 0.25MG TABLET PO SCH (20:25)
[2019-02-10] MEDS: FUROSEMIDE 40 MG TABLET PO SCH (20:25)
[2019-02-10] MEDS: hydrALAzine 20 MG/ML, 1ML IVPush PRN (20:26)
[2019-02-10] MEDS ORDERED: ONDANSETRON 2MG/ML, 2ML IVPush PRN (21:00)
[2019-02-11] MEDS ORDERED: [UNRECOGNIZED DRUG - REMARK] MC SCH (00:30)
[2019-02-11 01:03] VITALS: BP 149/73
[2019-02-11] MEDS: ACETAMINOPHEN 325 MG TABLET PO PRN ×2 (01:12→12:39)
[2019-02-11] MEDS: CARVEDILOL 6.25 MG TABLET PO SCH ×2 (04:50→17:21)
[2019-02-11 05:17] LABS: MEAN CORPUSCULAR HEMOGLOBIN 31.8 pg (27.0-34.8); MEAN CORPUSCULAR HGB CONC 34.4 g/dL (32.4-35.8); MEAN CORPUSCULAR VOLUME 92.4 fL (80-100); PLATELET COUNT 179 x10^3/uL (130-400); RED CELL DISTRIBUTION WIDTH 19.9 % (9.6-15.2)
[2019-02-11 05:21] LABS: CHLORIDE 99 mmol/L (98-107)
[2019-02-11 05:28] LABS: ALANINE AMINOTRANSFERASE 28 U/L (12-78); ALBUMIN 2.7 g/dL (3.4-5.0); ALKALINE PHOSPHATASE 83 U/L (45-117); ANION GAP 6 mmol/L (5-15); BILIRUBIN,TOTAL 0.6 mg/dL (0.2-1.0); CALCIUM 8.3 mg/dL (8.5-10.1); CREATININE 2.41 mg/dL (0.55-1.02); TOTAL PROTEIN 5.8 g/dL (6.4-8.2)
[2019-02-11 05:49] LABS: BASOPHILS # (AUTO) 0.05 x10^3/uL (0-0.1); BASOPHILS % (AUTO) 1 % (0-1); EOSINOPHILS # (AUTO) 0.39 x10^3/uL (0-0.4); EOSINOPHILS % (AUTO) 7 % (1-7); LYMPHOCYTES # (AUTO) 1.83 x10^3/uL (1-3.4); LYMPHOCYTES % (AUTO) 31 % (22-44); MD SCAN; MONOCYTES # (AUTO) 0.49 x10^3/uL (0.2-0.8); MONOCYTES % (AUTO) 8 % (2-9); NEUTROPHILS # (AUTO) 3.22 x10^3/uL (1.8-6.8); NEUTROPHILS % (AUTO) 54 % (42-75)
[2019-02-11 07:14] VITALS: BP 139/71
[2019-02-11] MEDS: SUCRALFATE 1 GM TABLET PO SCH ×4 (07:53→20:54)
[2019-02-11] MEDS: FUROSEMIDE 40 MG TABLET PO SCH ×2 (07:53→20:55)
[2019-02-11] MEDS: LISINOPRIL 10 MG TABLET PO SCH (07:54)
[2019-02-11] MEDS: PANTOPRAZOLE 40 MG IV IVPush SCH (07:54)
[2019-02-11] MEDS ORDERED: FENTANYL PF 100 MCG/2ML ONE (11:10)
[2019-02-11] MEDS ORDERED: MIDAZOLAM 1 MG/ML, 2ML ONE (11:10)
[2019-02-11] MEDS ORDERED: PROPOFOL 10 MG/ML, 20ML ONE (11:12)
[2019-02-11] MEDS ORDERED: hydrALAzine 20 MG/ML, 1ML IV PRN (11:30)
[2019-02-11] MEDS ORDERED: FENTANYL PF 100 MCG/2ML IV PRN (11:30)
[2019-02-11] MEDS ORDERED: HYDROmorphone 2 MG/ML, 1ML IVPush PRN (11:30)
[2019-02-11] MEDS ORDERED: HALOPERIDOL 5 MG/ML IV PRN (11:30)
[2019-02-11] MEDS ORDERED: MEPERIDINE/PF 25MG/ML,1ML IVPush PRN (11:30)
[2019-02-11] MEDS ORDERED: OXYcodone 5 MG/5 ML ORAL.SOL UDC PO PRN (11:30)
[2019-02-11 13:30] VITALS: BP 175/79
[2019-02-11 16:14] LABS: MICROSCOPIC AUTO
[2019-02-11 16:18] LABS: CULTURE INDICATED? YES
[2019-02-11] MEDS ORDERED: GOLYTELY 4,000ML ORAL.SOL PO ONE (17:00)
[2019-02-11] MEDS: ONDANSETRON 2MG/ML, 2ML IVPush PRN (17:25)
[2019-02-11 20:29] VITALS: BP 166/83
[2019-02-11] MEDS: ROPINIROLE 0.25MG TABLET PO SCH (20:54)
[2019-02-12] VITALS (8 sets, daily range): BP systolic 162–187; BP diastolic 68–80
[2019-02-12 06:28] LABS: ALBUMIN 2.5 g/dL (3.4-5.0); ANION GAP 10 mmol/L (5-15); CALCIUM 8.5 mg/dL (8.5-10.1); CHLORIDE 99 mmol/L (98-107)
[2019-02-12 06:31] LABS: ALANINE AMINOTRANSFERASE 30 U/L (12-78); ALKALINE PHOSPHATASE 81 U/L (45-117); BILIRUBIN,TOTAL 0.3 mg/dL (0.2-1.0); CREATININE 3.68 mg/dL (0.55-1.02); TOTAL PROTEIN 5.4 g/dL (6.4-8.2)
[2019-02-12 06:35] LABS: MEAN CORPUSCULAR HEMOGLOBIN 31.4 pg (27.0-34.8); MEAN CORPUSCULAR HGB CONC 33.7 g/dL (32.4-35.8); PLATELET COUNT 175 x10^3/uL (130-400); RED BLOOD COUNT 2.46 x10^6/uL (3.82-5.3); RED CELL DISTRIBUTION WIDTH 19.3 % (9.6-15.2)
[2019-02-12 07:41] LABS: BASOPHILS # (AUTO) 0.04 x10^3/uL (0-0.1); BASOPHILS % (AUTO) 1 % (0-1); EOSINOPHILS # (AUTO) 0.45 x10^3/uL (0-0.4); EOSINOPHILS % (AUTO) 8 % (1-7); LYMPHOCYTES # (AUTO) 1.71 x10^3/uL (1-3.4); LYMPHOCYTES % (AUTO) 30 % (22-44); MD SCAN; MONOCYTES # (AUTO) 0.55 x10^3/uL (0.2-0.8); MONOCYTES % (AUTO) 10 % (2-9); NEUTROPHILS # (AUTO) 2.88 x10^3/uL (1.8-6.8); NEUTROPHILS % (AUTO) 51 % (42-75)
[2019-02-12] MEDS: PANTOPRAZOLE 40 MG IV IVPush SCH (07:49)
[2019-02-12] MEDS: FUROSEMIDE 40 MG TABLET PO SCH ×2 (07:50→21:17)
[2019-02-12] MEDS: CARVEDILOL 6.25 MG TABLET PO SCH ×2 (07:50→17:01)
[2019-02-12] MEDS: SUCRALFATE 1 GM TABLET PO SCH ×4 (07:50→21:17)
[2019-02-12] MEDS: LISINOPRIL 10 MG TABLET PO SCH (07:50)
[2019-02-12] MEDS ORDERED: FENTANYL PF 100 MCG/2ML ONE (08:28)
[2019-02-12] MEDS ORDERED: MIDAZOLAM 1 MG/ML, 2ML ONE (08:28)
[2019-02-12] MEDS ORDERED: MEPERIDINE/PF 25MG/ML,1ML IVPush PRN (09:00)
[2019-02-12] MEDS ORDERED: FENTANYL PF 100 MCG/2ML IV PRN (09:00)
[2019-02-12] MEDS ORDERED: ONDANSETRON 2MG/ML, 2ML IV PRN (09:00)
[2019-02-12] MEDS ORDERED: HYDROmorphone 2 MG/ML, 1ML IVPush PRN (09:00)
[2019-02-12] MEDS ORDERED: OXYcodone 5 MG/5 ML ORAL.SOL UDC PO PRN (09:00)
[2019-02-12] MEDS ORDERED: hydrALAzine 20 MG/ML, 1ML IV PRN (09:00)
[2019-02-12] MEDS ORDERED: ACETAMINOPHEN 325 MG TABLET PO PRN (09:00)
[2019-02-12] MEDS ORDERED: PROPOFOL 10 MG/ML, 20ML ONE (09:32)
[2019-02-12] MEDS ORDERED: SIMETHICONE DROPS 40 MG/0.6 ML BOTTLE ONE (10:28)
[2019-02-12] MEDS: ACETAMINOPHEN 325 MG TABLET PO PRN ×2 (11:32→21:17)
[2019-02-12] MEDS: LIDODERM 5% PATCH TD PRN (17:01)
[2019-02-12] MEDS: hydrALAzine 20 MG/ML, 1ML IVPush PRN (17:43)
[2019-02-12] MEDS: ROPINIROLE 0.25MG TABLET PO SCH (21:17)
[2019-02-13] VITALS (7 sets, daily range): BP systolic 99–184; BP diastolic 61–77
[2019-02-13] MEDS: hydrALAzine 20 MG/ML, 1ML IVPush PRN ×2 (00:30→06:23)
[2019-02-13] MEDS: CARVEDILOL 6.25 MG TABLET PO SCH ×2 (05:30→16:46)
[2019-02-13] MEDS: PANTOPRAZOLE 40 MG IV IVPush SCH (08:44)
[2019-02-13] MEDS: SUCRALFATE 1 GM TABLET PO SCH ×4 (08:44→19:52)
[2019-02-13] MEDS: LISINOPRIL 20 MG TABLET PO SCH (08:44)
[2019-02-13] MEDS: FUROSEMIDE 40 MG TABLET PO SCH ×2 (08:44→19:52)
[2019-02-13] MEDS: LIDODERM 5% PATCH TD PRN (17:24)
[2019-02-13] MEDS: ROPINIROLE 0.25MG TABLET PO SCH (19:52)
[2019-02-14 01:49] VITALS: BP 177/82
[2019-02-14] MEDS: hydrALAzine 20 MG/ML, 1ML IVPush PRN ×2 (02:02→06:15)
[2019-02-14 05:07] LABS: ANION GAP 6 mmol/L (5-15); CALCIUM 8.7 mg/dL (8.5-10.1); CHLORIDE 101 mmol/L (98-107); CREATININE 4.83 mg/dL (0.55-1.02)
[2019-02-14 06:07] VITALS: BP 187/80
[2019-02-14] MEDS: SUCRALFATE 1 GM TABLET PO SCH ×4 (06:09→20:49)
[2019-02-14] MEDS: CARVEDILOL 6.25 MG TABLET PO SCH ×2 (06:09→18:09)
[2019-02-14] MEDS: PANTOPRAZOLE 40 MG IV IVPush SCH (12:53)
[2019-02-14] MEDS: DOCUSATE 100 MG CAPSULE PO PRN (12:53)
[2019-02-14] MEDS: FUROSEMIDE 40 MG TABLET PO SCH ×2 (12:53→20:49)
[2019-02-14] MEDS: LISINOPRIL 20 MG TABLET PO SCH (12:54)
[2019-02-14 14:38] VITALS: BP 160/64
[2019-02-14 19:26] VITALS: BP 152/65
[2019-02-14] MEDS: ROPINIROLE 0.25MG TABLET PO SCH (20:49)
[2019-02-15] VITALS (8 sets, daily range): BP systolic 121–188; BP diastolic 56–81
[2019-02-15 05:04] LABS: ALBUMIN 2.5 g/dL (3.4-5.0); BASOPHILS # (AUTO) 0.03 x10^3/uL (0-0.1); BASOPHILS % (AUTO) 1 % (0-1); CHLORIDE 102 mmol/L (98-107); EOSINOPHILS # (AUTO) 0.39 x10^3/uL (0-0.4); EOSINOPHILS % (AUTO) 8 % (1-7); LYMPHOCYTES # (AUTO) 1.34 x10^3/uL (1-3.4); LYMPHOCYTES % (AUTO) 27 % (22-44); MD NO; MEAN CORPUSCULAR HEMOGLOBIN 31.7 pg (27.0-34.8); MEAN CORPUSCULAR HGB CONC 33.2 g/dL (32.4-35.8); MEAN CORPUSCULAR VOLUME 95.4 fL (80-100); MEAN PLATELET VOLUME 6.8 fL (7.4-10.4); MONOCYTES # (AUTO) 0.49 x10^3/uL (0.2-0.8); MONOCYTES % (AUTO) 10 % (2-9); NEUTROPHILS # (AUTO) 2.71 x10^3/uL (1.8-6.8); NEUTROPHILS % (AUTO) 55 % (42-75); PLATELET COUNT 212 x10^3/uL (130-400); RED CELL DISTRIBUTION WIDTH 21.1 % (9.6-15.2)
[2019-02-15 05:09] LABS: ALANINE AMINOTRANSFERASE 18 U/L (12-78); ALKALINE PHOSPHATASE 84 U/L (45-117); ANION GAP 5 mmol/L (5-15); BILIRUBIN,TOTAL 0.4 mg/dL (0.2-1.0); CALCIUM 8.9 mg/dL (8.5-10.1); CREATININE 3.75 mg/dL (0.55-1.02); TOTAL PROTEIN 5.6 g/dL (6.4-8.2)
[2019-02-15] MEDS: DOCUSATE 100 MG CAPSULE PO PRN (06:30)
[2019-02-15] MEDS: SUCRALFATE 1 GM TABLET PO SCH ×4 (06:30→20:53)
[2019-02-15] MEDS: CARVEDILOL 6.25 MG TABLET PO SCH ×2 (06:30→17:09)
[2019-02-15] MEDS: PANTOPRAZOLE 40 MG IV IVPush SCH (10:29)
[2019-02-15] MEDS: FUROSEMIDE 40 MG TABLET PO SCH ×2 (10:30→20:54)
[2019-02-15] MEDS: LISINOPRIL 20 MG TABLET PO SCH (10:31)
[2019-02-15] MEDS ORDERED: HYDR-3342 PO (11:57)
[2019-02-15] MEDS: ROPINIROLE 0.25MG TABLET PO SCH (20:53)
[2019-02-15] MEDS: hydrALAzine 20 MG/ML, 1ML IVPush PRN (23:11)
[2019-02-16 00:13] VITALS: BP 150/64
[2019-02-16] MEDS: SUCRALFATE 1 GM TABLET PO SCH ×2 (03:12→10:52)
[2019-02-16] MEDS: CARVEDILOL 6.25 MG TABLET PO SCH (03:12)
[2019-02-16 05:36] VITALS: BP 159/67
[2019-02-16] MEDS: ONDANSETRON 2MG/ML, 2ML IVPush PRN (05:40)
[2019-02-16 05:52] LABS: CALCIUM 8.4 mg/dL (8.5-10.1); CHLORIDE 100 mmol/L (98-107)
[2019-02-16 05:56] LABS: MEAN CORPUSCULAR HEMOGLOBIN 31.8 pg (27.0-34.8); MEAN CORPUSCULAR HGB CONC 33.2 g/dL (32.4-35.8); MEAN CORPUSCULAR VOLUME 95.8 fL (80-100); MEAN PLATELET VOLUME 6.7 fL (7.4-10.4); PLATELET COUNT 211 x10^3/uL (130-400)
[2019-02-16 05:58] LABS: ALANINE AMINOTRANSFERASE 20 U/L (12-78); ALBUMIN 2.3 g/dL (3.4-5.0); ALKALINE PHOSPHATASE 80 U/L (45-117); ANION GAP 8 mmol/L (5-15); BILIRUBIN,TOTAL 0.3 mg/dL (0.2-1.0); CREATININE 4.91 mg/dL (0.55-1.02); RED CELL DISTRIBUTION WIDTH 21.6 % (9.6-15.2); TOTAL PROTEIN 5.1 g/dL (6.4-8.2)
[2019-02-16 06:46] LABS: BASOPHILS # (AUTO) 0.04 x10^3/uL (0-0.1); BASOPHILS % (AUTO) 1 % (0-1); EOSINOPHILS # (AUTO) 0.44 x10^3/uL (0-0.4); EOSINOPHILS % (AUTO) 9 % (1-7); LYMPHOCYTES # (AUTO) 1.94 x10^3/uL (1-3.4); LYMPHOCYTES % (AUTO) 39 % (22-44); MD SCAN; MONOCYTES # (AUTO) 0.48 x10^3/uL (0.2-0.8); MONOCYTES % (AUTO) 10 % (2-9); NEUTROPHILS # (AUTO) 2.07 x10^3/uL (1.8-6.8); NEUTROPHILS % (AUTO) 42 % (42-75)
[2019-02-16 07:15] VITALS: BP 151/65
[2019-02-16] MEDS ORDERED: AMLODIPINE 5 MG TABLET PO ONE (10:00)
[2019-02-16 10:49] VITALS: BP 156/66
[2019-02-16] MEDS: PANTOPRAZOLE 40 MG IV IVPush SCH (10:51)
[2019-02-16] MEDS: LISINOPRIL 20 MG TABLET PO SCH (10:52)
[2019-02-16] MEDS: FUROSEMIDE 40 MG TABLET PO SCH (10:52)
[2019-02-16] MEDS ORDERED: AMLO5TAB10 PO (11:41)
[2019-02-16 13:06] VITALS: BP 136/52
== END 2019-02-16 14:00 | disposition home or self-care (01) | DRG 377 ==
LOC: ED 11:49 → EDIP 11:50 → ED 12:12 → 4WST 13:56 → DCLOUNGE 02-16 13:46
PROVIDERS: ADMIT Family Medicine; ATTEND Family Medicine
PROC: 5A1D70Z Performance of Urinary Filtration, Intermittent, Less than 6 Hours Per Day (ICD-10-PCS; principal; 2019-02-10)
PROC: 30233N1 Transfusion of Nonautologous Red Blood Cells into Peripheral Vein, Percutaneous Approach (ICD-10-PCS; 2019-02-10)
PROC: 0W3P8ZZ Control Bleeding in Gastrointestinal Tract, Via Natural or Artificial Opening Endoscopic (ICD-10-PCS; 2019-02-11)
PROC: 5A1D70Z Performance of Urinary Filtration, Intermittent, Less than 6 Hours Per Day (ICD-10-PCS; 2019-02-12)
PROC: 0DJD8ZZ Inspection of Lower Intestinal Tract, Via Natural or Artificial Opening Endoscopic (ICD-10-PCS; 2019-02-12)
PROC: 5A1D70Z Performance of Urinary Filtration, Intermittent, Less than 6 Hours Per Day (ICD-10-PCS; 2019-02-14)
DX: K26.4 Chronic or unspecified duodenal ulcer with hemorrhage (principal); N18.6 End stage renal disease; D62 Acute posthemorrhagic anemia; I12.0 Hypertensive chronic kidney disease with stage 5 chronic kidney disease or end stage renal disease; K31.5 Obstruction of duodenum; E78.5 Hyperlipidemia, unspecified; G89.29 Other chronic pain; E11.22 Type 2 diabetes mellitus with diabetic chronic kidney disease; Z79.4 Long term (current) use of insulin; Z87.81 Personal history of (healed) traumatic fracture; Z87.891 Personal history of nicotine dependence; Z99.2 Dependence on renal dialysis
CPT/HCPCS: 36415; 36430; 74177; 78278; 80048; 80053; 81001; 82306; 82310; 82728; 83540; 83550; 83605; 83690; 83735; 83970; 84100; 84550; 85014; 85018; 85025; 85045; 85610; 85730; 86850; 86900; 86923; 87086; 90935; 93005; 96361; 96374; G0378; J0882; J2250; J2405; J2704; J3010; Q9967; A9560; C9113; J0360; J2270; J7030; P9016

== ENCOUNTER 2019-02-22 20:09 | Inpatient (IN) | payer BC, MEDICARE ==
[~2019-02-22] VITALS: Ht 157.5 cm; Wt 58.6 kg
[~2019-02-22 20:09] MED LIST changes: +AMLO5TAB10 PO; +CARV6.25 PO; +HYDR-3342 PO; +LISI-167 PO; +ROPI0.254 PO
--- NOTE | 2019-02-22 20:10 | NUR ---
BIB [facility] FROM HOME W/ CO SOB X LAST NIGHT. +PRODUCTIVE COUGH W/ YELLOW SPUTUM AND CONSTANT CHEST PRESSURE ONSET WHILE AT REST. S/S WORSENING X ONE HOUR. FOUND HYPOXIC, 82% ON RA. UPON ARRIVAL, 89-91% ON RA, 92 ON 2L BY NC. HX OF "BLEEDING", ADMIT ONE MONTH AGO FOR SAME AND DIALYSIS (M/W/F). +2 PITTING [place] EDEMA WHICH PT STATES IS BASELINE. PT AWAKE/ALERT, LETHARGIC. RESPIRATIONS EVEN/UNLABORED. PWD. BP/SPO2/ECG MONITORING IN PLACE. NSR ON MONITOR.
[2019-02-22] MEDS ORDERED: methylPREDNISolone SOD SUCC 125 MG/2 ML IVPush STA (20:23)
[2019-02-22] MEDS ORDERED: ALBUTEROL/IPRATROPIUM 2.5MG/0.5MG, 3 ML NPPB ONE (20:30)
[2019-02-22] MEDS ORDERED: methylPREDNISolone SOD SUCC 125 MG/2 ML ONE (20:33)
--- NOTE | 2019-02-22 20:40 | NUR ---
ERP AWARE OF CO CHEST PAIN. [facility] HELD AT THIS TIME D/T RECENT HX OF GI BLEED AND "SLIGHTLY POSITIVE HEME-OCCULT" PER ERP. PT MEDICATED PER EMAR.
[2019-02-22 20:57] LABS: BASOPHILS # (AUTO) 0.04 x10^3/uL (0-0.1); BASOPHILS % (AUTO) 1 % (0-1); EOSINOPHILS # (AUTO) 0.44 x10^3/uL (0-0.4); EOSINOPHILS % (AUTO) 5 % (1-7); LYMPHOCYTES # (AUTO) 1.46 x10^3/uL (1-3.4); LYMPHOCYTES % (AUTO) 18 % (22-44); MD NO; MEAN CORPUSCULAR HEMOGLOBIN 32.3 pg (27.0-34.8); MEAN CORPUSCULAR HGB CONC 32.8 g/dL (32.4-35.8); MEAN CORPUSCULAR VOLUME 98.6 fL (80-100); MONOCYTES # (AUTO) 0.43 x10^3/uL (0.2-0.8); MONOCYTES % (AUTO) 5 % (2-9); NEUTROPHILS # (AUTO) 5.86 x10^3/uL (1.8-6.8); NEUTROPHILS % (AUTO) 71 % (42-75); PLATELET COUNT 217 x10^3/uL (130-400); RED BLOOD COUNT 2.88 x10^6/uL (3.82-5.3); RED CELL DISTRIBUTION WIDTH 21.5 % (9.6-15.2)
--- NOTE | 2019-02-22 21:00 | NUR ---
REPORT TO DARREL BULLOCK
[2019-02-22 21:05] LABS: ALANINE AMINOTRANSFERASE 17 U/L (12-78); ANION GAP 7 mmol/L (5-15); CALCIUM 9.1 mg/dL (8.5-10.1); CHLORIDE 101 mmol/L (98-107); CREATININE 5.66 mg/dL (0.55-1.02)
[2019-02-22 21:10] LABS: ALKALINE PHOSPHATASE 125 U/L (45-117); BILIRUBIN,TOTAL 0.5 mg/dL (0.2-1.0); TOTAL PROTEIN 6.8 g/dL (6.4-8.2); TROPONIN I < 0.015 ng/mL (0.000-0.045)
--- NOTE | 2019-02-22 21:23 | NUR ---
Report received from DARREL Peters. This RN to assume care. Patient resting in gurney in NAD. Patient has no complaints. Respirations even and unlabored.
[2019-02-22] MEDS ORDERED: FUROSEMIDE 40 MG/4 ML ONE (21:26)
[2019-02-22] MEDS ORDERED: FUROSEMIDE 40 MG/4 ML IV ONE (21:30)
[2019-02-22] MEDS ORDERED: CARV6.252 PO (21:48)
[2019-02-22] MEDS ORDERED: FURO20TA3 PO (21:48)
[2019-02-22] MEDS ORDERED: ASPI-496 PO (21:48)
[2019-02-22] MEDS ORDERED: SEVE800T7 PO (21:48)
[2019-02-22] MEDS ORDERED: LISI-167 PO (21:48)
[2019-02-22] MEDS ORDERED: ROPI0.254 PO (21:48)
[2019-02-22] MEDS ORDERED: SODIUM CHLORIDE FLUSH 10ML SYR IVF PRN (22:00)
[2019-02-22] MEDS ORDERED: DOCUSATE 100 MG CAPSULE PO PRN (22:30)
[2019-02-22] MEDS ORDERED: ACETAMINOPHEN 325 MG TABLET PO PRN (22:30)
[2019-02-22] MEDS ORDERED: LABETALOL 5MG/ML, 20ML IVPush PRN (22:30)
[2019-02-22] MEDS ORDERED: hydrALAzine 20 MG/ML, 1ML IVPush PRN (22:30)
[2019-02-22] MEDS ORDERED: GLUCAGON 1 MG IM PRN (23:00)
[2019-02-22] MEDS ORDERED: DEXTROSE 4 GM TAB.CHEW PO PRN (23:00)
[2019-02-22] MEDS ORDERED: DEXTROSE 50%, 50ML SYRINGE IVPush PRN (23:00)
[2019-02-22] MEDS ORDERED: ALBUTEROL/IPRATROPIUM 2.5MG/0.5MG, 3 ML ONE (23:55)
[2019-02-23] MEDS ORDERED: HEPARIN 5,000 UNITS/ML, 1ML SQ SCH (00:30)
[2019-02-23] MEDS ORDERED: HEPARIN 5,000 UNITS/ML, 1ML ONE (02:01)
--- NOTE | 2019-02-23 02:11 | NUR ---
Medical bed requested
--- NOTE | 2019-02-23 03:10 | NUR ---
Patient up to bedside commode. Patient transferred to medical bed.
--- NOTE | 2019-02-23 04:50 | NUR ---
Report received and care assumed. Admit orders reviewed. Pt sitting in bed with no s/s of acute distress. NSR on monitor. Ice chips and water given per request. No further needs expressed. Call light in reach.
--- NOTE | 2019-02-23 04:51 | NUR ---
Report given to DARREL Tanner.
[2019-02-23 05:21] LABS: MEAN CORPUSCULAR HEMOGLOBIN 32.6 pg (27.0-34.8); MEAN CORPUSCULAR HGB CONC 33.4 g/dL (32.4-35.8); MEAN CORPUSCULAR VOLUME 97.6 fL (80-100); MEAN PLATELET VOLUME 6.9 fL (7.4-10.4); PLATELET COUNT 213 x10^3/uL (130-400); RED BLOOD COUNT 2.85 x10^6/uL (3.82-5.3); RED CELL DISTRIBUTION WIDTH 21.8 % (9.6-15.2)
[2019-02-23 05:33] LABS: ANION GAP 9 mmol/L (5-15); CALCIUM 8.7 mg/dL (8.5-10.1); CHLORIDE 101 mmol/L (98-107)
[2019-02-23 05:34] LABS: CREATININE 6.11 mg/dL (0.55-1.02)
[2019-02-23 05:39] LABS: BASOPHILS # (AUTO) 0.01 x10^3/uL (0-0.1); BASOPHILS % (AUTO) 0 % (0-1); EOSINOPHILS % (AUTO) 0 % (1-7); LYMPHOCYTES # (AUTO) 0.73 x10^3/uL (1-3.4); LYMPHOCYTES % (AUTO) 14 % (22-44); MD SCAN; MONOCYTES # (AUTO) 0.06 x10^3/uL (0.2-0.8); MONOCYTES % (AUTO) 1 % (2-9); NEUTROPHILS # (AUTO) 4.64 x10^3/uL (1.8-6.8); NEUTROPHILS % (AUTO) 85 % (42-75)
[2019-02-23] MEDS ORDERED: OMEPRAZOLE 20 MG CAPSULE.DR ONE (05:43)
--- NOTE | 2019-02-23 06:00 | NUR ---
Pt sleeping with resp even and unlabored. No acute changes noted.
[2019-02-23] MEDS: SUCRALFATE 1 GM TABLET PO SCH ×3 (06:42→17:12)
[2019-02-23] MEDS: OMEPRAZOLE 20 MG CAPSULE.DR PO SCH ×2 (06:42→17:13)
--- NOTE | 2019-02-23 06:55 | NUR ---
Morning meds given. VSS. NSR on monitor. Pt states she feels like she might need dialysis eariler. Labs to be reviewed and reported to oncoming shift. FSBS 303--awaiting meal tray before administering insulin. Pt denies needs at this time. Call light in reach. Report to Ayan ROJO.
--- NOTE | 2019-02-23 07:21 | NUR ---
REPORT TO NAHEED ROJO
[2019-02-23 07:48] VITALS: BP 163/78
[2019-02-23] MEDS: FUROSEMIDE 40 MG/4 ML IV SCH ×2 (08:14→17:03)
[2019-02-23] MEDS: CARVEDILOL 6.25 MG TABLET PO SCH (08:15)
[2019-02-23] MEDS: AMLODIPINE 5 MG TABLET PO SCH (08:15)
[2019-02-23] MEDS: ROPINIROLE 0.25MG TABLET PO SCH (08:15)
[2019-02-23] MEDS: LISINOPRIL 10 MG TABLET PO SCH (08:15)
[2019-02-23] MEDS: ASPIRIN 81 MG TABLET EC PO SCH (08:15)
[2019-02-23] MEDS: INSULIN LISPRO 100 UNITS/ML, PEN SQ-INSULIN SCH ×4 (08:15→21:00)
[2019-02-23] MEDS: SEVELAMER CARBONATE 800MG TAB PO SCH ×3 (08:16→17:12)
[2019-02-23] MEDS: SODIUM CHLORIDE FLUSH 10ML SYR IVF SCH ×2 (08:16→21:00)
[2019-02-23] MEDS ORDERED: DARBEPOETIN 100 MCG/ML SQ SCH (09:00)
[2019-02-23 13:05] VITALS: BP 162/69
[2019-02-23 18:07] LABS: ANION GAP 10 mmol/L (5-15); CALCIUM 8.6 mg/dL (8.5-10.1); CHLORIDE 99 mmol/L (98-107)
[2019-02-23 19:30] VITALS: BP 146/79
[2019-02-24 00:02] VITALS: BP 132/64
[2019-02-24] MEDS: CARVEDILOL 6.25 MG TABLET PO SCH ×3 (00:09→21:41)
[2019-02-24] MEDS: SUCRALFATE 1 GM TABLET PO SCH ×5 (00:09→21:41)
[2019-02-24 04:52] LABS: BASOPHILS # (AUTO) 0.04 x10^3/uL (0-0.1); BASOPHILS % (AUTO) 1 % (0-1); EOSINOPHILS % (AUTO) 4 % (1-7); LYMPHOCYTES # (AUTO) 1.94 x10^3/uL (1-3.4); LYMPHOCYTES % (AUTO) 40 % (22-44); MD NO; MEAN CORPUSCULAR HGB CONC 32.4 g/dL (32.4-35.8); MEAN CORPUSCULAR VOLUME 98.6 fL (80-100); MEAN PLATELET VOLUME 7.1 fL (7.4-10.4); MONOCYTES % (AUTO) 6 % (2-9); NEUTROPHILS # (AUTO) 2.36 x10^3/uL (1.8-6.8); NEUTROPHILS % (AUTO) 49 % (42-75); PLATELET COUNT 183 x10^3/uL (130-400); RED BLOOD COUNT 2.42 x10^6/uL (3.82-5.3); RED CELL DISTRIBUTION WIDTH 21.9 % (9.6-15.2)
[2019-02-24 05:01] LABS: ALBUMIN 2.5 g/dL (3.4-5.0); ANION GAP 8 mmol/L (5-15); CALCIUM 7.9 mg/dL (8.5-10.1); CHLORIDE 100 mmol/L (98-107)
[2019-02-24 05:06] LABS: ALANINE AMINOTRANSFERASE 18 U/L (12-78); ALKALINE PHOSPHATASE 89 U/L (45-117); BILIRUBIN,TOTAL 0.3 mg/dL (0.2-1.0); CREATININE 3.33 mg/dL (0.55-1.02); TOTAL PROTEIN 5.6 g/dL (6.4-8.2)
[2019-02-24 05:34] VITALS: BP 159/64
[2019-02-24] MEDS: OMEPRAZOLE 20 MG CAPSULE.DR PO SCH ×2 (05:35→16:05)
[2019-02-24] MEDS: INSULIN LISPRO 100 UNITS/ML, PEN SQ-INSULIN SCH ×4 (07:00→21:48)
[2019-02-24] MEDS: FUROSEMIDE 40 MG/4 ML IV SCH ×2 (07:30→18:01)
[2019-02-24 07:32] VITALS: BP 148/62
[2019-02-24] MEDS: SEVELAMER CARBONATE 800MG TAB PO SCH ×3 (08:00→18:00)
[2019-02-24] MEDS: SODIUM CHLORIDE FLUSH 10ML SYR IVF SCH ×2 (09:00→21:42)
[2019-02-24 12:52] VITALS: BP 137/63
[2019-02-24] MEDS: ASPIRIN 81 MG TABLET EC PO SCH (13:28)
[2019-02-24] MEDS: AMLODIPINE 5 MG TABLET PO SCH (13:28)
[2019-02-24] MEDS: ROPINIROLE 0.25MG TABLET PO SCH (13:28)
[2019-02-24] MEDS: LISINOPRIL 10 MG TABLET PO SCH (13:28)
[2019-02-24 18:02] VITALS: BP 128/70
[2019-02-24 18:53] VITALS: BP 121/57
[2019-02-25 00:16] VITALS: BP 105/62
[2019-02-25 05:22] VITALS: BP 172/74
[2019-02-25 05:38] LABS: BASOPHILS # (AUTO) 0.06 x10^3/uL (0-0.1); BASOPHILS % (AUTO) 1 % (0-1); EOSINOPHILS % (AUTO) 6 % (1-7); LYMPHOCYTES # (AUTO) 1.75 x10^3/uL (1-3.4); LYMPHOCYTES % (AUTO) 38 % (22-44); MD NO; MEAN CORPUSCULAR HEMOGLOBIN 32.7 pg (27.0-34.8); MEAN CORPUSCULAR HGB CONC 33.3 g/dL (32.4-35.8); MEAN CORPUSCULAR VOLUME 98.3 fL (80-100); MEAN PLATELET VOLUME 7.1 fL (7.4-10.4); MONOCYTES # (AUTO) 0.46 x10^3/uL (0.2-0.8); MONOCYTES % (AUTO) 10 % (2-9); NEUTROPHILS # (AUTO) 2.09 x10^3/uL (1.8-6.8); NEUTROPHILS % (AUTO) 45 % (42-75); PLATELET COUNT 208 x10^3/uL (130-400); RED BLOOD COUNT 2.64 x10^6/uL (3.82-5.3); RED CELL DISTRIBUTION WIDTH 21.8 % (9.6-15.2)
[2019-02-25] MEDS: OMEPRAZOLE 20 MG CAPSULE.DR PO SCH ×2 (05:49→17:33)
[2019-02-25] MEDS: SUCRALFATE 1 GM TABLET PO SCH ×4 (05:49→20:03)
[2019-02-25 05:55] LABS: ANION GAP 9 mmol/L (5-15); CALCIUM 8.2 mg/dL (8.5-10.1); CHLORIDE 101 mmol/L (98-107); CREATININE 3.05 mg/dL (0.55-1.02)
[2019-02-25 07:25] VITALS: BP 136/60
[2019-02-25] MEDS: AMLODIPINE 5 MG TABLET PO SCH (08:27)
[2019-02-25] MEDS: SEVELAMER CARBONATE 800MG TAB PO SCH ×3 (08:27→17:33)
[2019-02-25] MEDS: FUROSEMIDE 40 MG/4 ML IV SCH (08:27)
[2019-02-25] MEDS: ROPINIROLE 0.25MG TABLET PO SCH (08:27)
[2019-02-25] MEDS: LISINOPRIL 10 MG TABLET PO SCH (08:28)
[2019-02-25] MEDS: ASPIRIN 81 MG TABLET EC PO SCH (08:28)
[2019-02-25] MEDS: SODIUM CHLORIDE FLUSH 10ML SYR IVF SCH ×2 (08:28→20:03)
[2019-02-25] MEDS: CARVEDILOL 6.25 MG TABLET PO SCH ×2 (08:28→20:02)
[2019-02-25] MEDS: INSULIN LISPRO 100 UNITS/ML, PEN SQ-INSULIN SCH ×4 (08:29→20:10)
[2019-02-25 09:40] LABS: TROPONIN I < 0.015 ng/mL (0.000-0.045)
[2019-02-25] MEDS: FUROSEMIDE 40 MG TABLET PO SCH ×2 (12:15→17:33)
[2019-02-25 12:19] VITALS: BP 128/65
[2019-02-25 13:02] LABS: TROPONIN I < 0.015 ng/mL (0.000-0.045)
[2019-02-25] MEDS ORDERED: POLYETHYLENE GLYCOL 17 GM PACKET NG ONE (14:00)
[2019-02-25] MEDS ORDERED: ACETAMINOPHEN 325 MG TABLET PO PRN (14:00)
[2019-02-25 14:19] LABS: ALBUMIN 3.1 g/dL (3.4-5.0); BILIRUBIN, DIRECT 0.1 mg/dL (0.1-0.2)
[2019-02-25 14:21] LABS: BILIRUBIN,INDIRECT 0.2 mg/dL (0.0-2.0); BILIRUBIN,TOTAL 0.3 mg/dL (0.2-1.0); TOTAL PROTEIN 6.6 g/dL (6.4-8.2)
[2019-02-25 16:50] LABS: TROPONIN I < 0.015 ng/mL (0.000-0.045)
[2019-02-25] MEDS ORDERED: FUROSEMIDE 40 MG TABLET PO SCH (17:00)
[2019-02-25 17:06] LABS: MICROSCOPIC AUTO
[2019-02-25 17:09] LABS: CULTURE INDICATED? YES
[2019-02-25 18:47] VITALS: BP 131/64
[2019-02-26 00:52] LABS: OCCULT BLOOD NEGATIVE (NEGATIVE)
[2019-02-26 01:21] VITALS: BP 147/63
[2019-02-26 05:29] VITALS: BP 152/72
[2019-02-26] MEDS: OMEPRAZOLE 20 MG CAPSULE.DR PO SCH (05:30)
[2019-02-26] MEDS: SUCRALFATE 1 GM TABLET PO SCH ×2 (05:30→13:19)
[2019-02-26 05:59] LABS: BASOPHILS # (AUTO) 0.05 x10^3/uL (0-0.1); BASOPHILS % (AUTO) 1 % (0-1); EOSINOPHILS # (AUTO) 0.37 x10^3/uL (0-0.4); EOSINOPHILS % (AUTO) 9 % (1-7); LYMPHOCYTES # (AUTO) 1.69 x10^3/uL (1-3.4); LYMPHOCYTES % (AUTO) 39 % (22-44); MD NO; MEAN CORPUSCULAR HEMOGLOBIN 32.7 pg (27.0-34.8); MEAN CORPUSCULAR HGB CONC 33.3 g/dL (32.4-35.8); MEAN CORPUSCULAR VOLUME 98.2 fL (80-100); MEAN PLATELET VOLUME 6.9 fL (7.4-10.4); MONOCYTES # (AUTO) 0.46 x10^3/uL (0.2-0.8); MONOCYTES % (AUTO) 10 % (2-9); NEUTROPHILS % (AUTO) 41 % (42-75); PLATELET COUNT 217 x10^3/uL (130-400); RED BLOOD COUNT 2.71 x10^6/uL (3.82-5.3); RED CELL DISTRIBUTION WIDTH 21.3 % (9.6-15.2)
[2019-02-26 06:23] LABS: ALBUMIN 2.7 g/dL (3.4-5.0); ANION GAP 7 mmol/L (5-15); CALCIUM 8.4 mg/dL (8.5-10.1); CHLORIDE 98 mmol/L (98-107); CREATININE 4.86 mg/dL (0.55-1.02)
[2019-02-26] MEDS: INSULIN LISPRO 100 UNITS/ML, PEN SQ-INSULIN SCH ×2 (07:51→13:01)
[2019-02-26 07:57] VITALS: BP 156/65
[2019-02-26] MEDS: SEVELAMER CARBONATE 800MG TAB PO SCH ×2 (08:09→13:19)
[2019-02-26] MEDS: ROPINIROLE 0.25MG TABLET PO SCH (08:09)
[2019-02-26] MEDS: ASPIRIN 81 MG TABLET EC PO SCH (08:09)
[2019-02-26 13:17] VITALS: BP 119/66
[2019-02-26] MEDS: LISINOPRIL 10 MG TABLET PO SCH (13:19)
[2019-02-26] MEDS: FUROSEMIDE 40 MG TABLET PO SCH (13:19)
[2019-02-26] MEDS: SODIUM CHLORIDE FLUSH 10ML SYR IVF SCH (13:20)
[2019-02-26] MEDS: CARVEDILOL 6.25 MG TABLET PO SCH (13:20)
[2019-02-26] MEDS: AMLODIPINE 5 MG TABLET PO SCH (13:20)
== END 2019-02-26 14:40 | disposition home or self-care (01) | DRG 291 ==
LOC: ED 21:04 → EDIP 21:38 → 5SO 02-23 07:46 → DCLOUNGE 02-26 14:35
PROVIDERS: ADMIT Emergency Medicine; ATTEND Emergency Medicine
PROC: 5A1D70Z Performance of Urinary Filtration, Intermittent, Less than 6 Hours Per Day (ICD-10-PCS; 2019-02-23)
PROC: 5A1D70Z Performance of Urinary Filtration, Intermittent, Less than 6 Hours Per Day (ICD-10-PCS; 2019-02-24)
PROC: 5A1D70Z Performance of Urinary Filtration, Intermittent, Less than 6 Hours Per Day (ICD-10-PCS; principal; 2019-02-26)
DX: I13.2 Hypertensive heart and chronic kidney disease with heart failure and with stage 5 chronic kidney disease, or end stage renal disease (principal); J96.01 Acute respiratory failure with hypoxia; N18.6 End stage renal disease; I50.43 Acute on chronic combined systolic (congestive) and diastolic (congestive) heart failure; D62 Acute posthemorrhagic anemia; E87.3 Alkalosis; E11.65 Type 2 diabetes mellitus with hyperglycemia; E78.5 Hyperlipidemia, unspecified; E87.5 Hyperkalemia; G89.29 Other chronic pain; M54.9 Dorsalgia, unspecified; Z82.5 Family history of asthma and other chronic lower respiratory diseases; Z83.3 Family history of diabetes mellitus; Z82.49 Family history of ischemic heart disease and other diseases of the circulatory system; Z79.899 Other long term (current) drug therapy; Z91.048 Other nonmedicinal substance allergy status; Z87.891 Personal history of nicotine dependence; Z91.14 Patient's other noncompliance with medication regimen; Z99.2 Dependence on renal dialysis
CPT/HCPCS: 36415; 36600; 71045; 71046; 74021; 80048; 80053; 80069; 80076; 81001; 82272; 82274; 82803; 82962; 83036; 83605; 83735; 83880; 84100; 84145; 84484; 85025; 86850; 86900; 87040; 87086; 90935; 93005; 93306; 99285; G0378; J0881; J1644; J1940; J1815; J2930

== ENCOUNTER 2019-03-23 21:47 | Inpatient (IN) | payer BC, MEDICARE ==
[~2019-03-23] VITALS: Ht 157.5 cm; Wt 56.6 kg
[~2019-03-23 21:47] MED LIST changes: +ASPI-496 PO; +CARV6.252 PO; +SEVE800T7 PO
--- NOTE | 2019-03-23 21:54 | NUR ---
RESPIRATORY AND RAD IN ROOM.
[2019-03-23] MEDS ORDERED: ONDANSETRON 2MG/ML, 2ML IVPush ONE (22:00)
[2019-03-23] MEDS ORDERED: FUROSEMIDE 40 MG/4 ML IV ONE (22:00)
[2019-03-23] MEDS ORDERED: NITROGLYCERIN SINGLE TAB 0.4 MG SL PRN (22:00)
--- NOTE | 2019-03-23 22:05 | NUR ---
THIS IS A 78 YO F BIB EMS FROM HOME W/ C/O SOB SINCE 2029 THIS EVENING. PT DOES NOT WEAR O2 AT HOME. ARRIVED ON 12L NONREBREATHER 97%, EPISODE OF VOMITING DURING TRANSPORT. RECEIVED ZOFRAN AND NITRO AUTO HIKER. PT HYPERTENSIVE, TACHYCARDIC, TACHYPNEIC. COVERSING W/ STAFF IN SHORT SENTENES. DENIES CP. HX:CHF. PT CONNECTED TO MONITORING. RESTING ON GURNEY W/ CALL LIGHT IN REACH. ED PROVIDER AT BEDSIDE.
--- NOTE | 2019-03-23 22:05 | NUR ---
LAB IN ROOM.
[2019-03-23 22:13] LABS: BASOPHILS # (AUTO) 0.02 x10^3/uL (0-0.1); BASOPHILS % (AUTO) 0 % (0-1); EOSINOPHILS # (AUTO) 0.23 x10^3/uL (0-0.4); EOSINOPHILS % (AUTO) 3 % (1-7); LYMPHOCYTES # (AUTO) 1.31 x10^3/uL (1-3.4); LYMPHOCYTES % (AUTO) 17 % (22-44); MD NO; MEAN CORPUSCULAR HEMOGLOBIN 34.1 pg (27.0-34.8); MEAN CORPUSCULAR HGB CONC 33.9 g/dL (32.4-35.8); MEAN CORPUSCULAR VOLUME 100.4 fL (80-100); MEAN PLATELET VOLUME 6.9 fL (7.4-10.4); MONOCYTES # (AUTO) 0.28 x10^3/uL (0.2-0.8); MONOCYTES % (AUTO) 4 % (2-9); NEUTROPHILS # (AUTO) 5.81 x10^3/uL (1.8-6.8); NEUTROPHILS % (AUTO) 76 % (42-75); PLATELET COUNT 185 x10^3/uL (130-400); RED BLOOD COUNT 2.47 x10^6/uL (3.82-5.3); RED CELL DISTRIBUTION WIDTH 18.7 % (9.6-15.2)
--- NOTE | 2019-03-23 22:15 | NUR ---
PT MEDICATED PER EMAR.
--- NOTE | 2019-03-23 22:17 | NUR ---
PT PLACED ON COMMODE.
[2019-03-23 22:25] LABS: ALANINE AMINOTRANSFERASE 29 U/L (12-78); ANION GAP 8 mmol/L (5-15); CALCIUM 8.9 mg/dL (8.5-10.1); CHLORIDE 101 mmol/L (98-107); CREATININE 6.34 mg/dL (0.55-1.02)
[2019-03-23 22:30] LABS: ALKALINE PHOSPHATASE 257 U/L (45-117); BILIRUBIN,TOTAL 0.4 mg/dL (0.2-1.0); TROPONIN I < 0.015 ng/mL (0.000-0.045)
--- NOTE | 2019-03-23 22:58 | NUR ---
PT HAD LARGE FORMED BM.
[2019-03-23] MEDS ORDERED: ACETAMINOPHEN 500 MG TABLET PO ONE (23:00)
[2019-03-23] MEDS ORDERED: ACETAMINOPHEN 500 MG TABLET ONE (23:08)
[2019-03-23] MEDS ORDERED: ONDANSETRON 2MG/ML, 2ML IV PRN (23:30)
[2019-03-23] MEDS ORDERED: ENALAPRILAT 1.25 MG/ML, 1ML IVPush PRN (23:30)
[2019-03-23] MEDS ORDERED: BISACODYL 10 MG SUPP PR PRN (23:30)
[2019-03-23] MEDS ORDERED: POLYETHYLENE GLYCOL 17 GM PACKET PO PRN (23:30)
[2019-03-23] MEDS ORDERED: HEPARIN 5,000 UNITS/ML, 1ML SQ SCH (23:30)
[2019-03-23] MEDS ORDERED: PLEASE ENTER ALLERGIES MC SCH (23:45)
[2019-03-24] MEDS ORDERED: FUROSEMIDE 40 MG/4 ML IV ONE
[2019-03-24] MEDS ORDERED: DEXTROSE 50%, 50ML SYRINGE IVPush PRN
[2019-03-24] MEDS ORDERED: GLUCAGON 1 MG IM PRN
[2019-03-24] MEDS ORDERED: DEXTROSE 4 GM TAB.CHEW PO PRN
[2019-03-24 00:19] VITALS: BP 170/79
[2019-03-24] MEDS: ACETAMINOPHEN 650 MG/20.3 ML UDC PO PRN ×5 (00:46→21:36)
[2019-03-24 05:31] LABS: MEAN CORPUSCULAR HEMOGLOBIN 33.4 pg (27.0-34.8); MEAN CORPUSCULAR HGB CONC 33.5 g/dL (32.4-35.8); MEAN CORPUSCULAR VOLUME 99.9 fL (80-100); MEAN PLATELET VOLUME 7.1 fL (7.4-10.4); PLATELET COUNT 158 x10^3/uL (130-400); RED BLOOD COUNT 2.22 x10^6/uL (3.82-5.3); RED CELL DISTRIBUTION WIDTH 18.4 % (9.6-15.2)
[2019-03-24 05:32] LABS: ANION GAP 6 mmol/L (5-15); CALCIUM 8.7 mg/dL (8.5-10.1); CHLORIDE 103 mmol/L (98-107); CREATININE 6.68 mg/dL (0.55-1.02)
[2019-03-24 06:09] VITALS: BP 159/69
[2019-03-24] MEDS: OMEPRAZOLE 20 MG CAPSULE.DR PO SCH ×2 (06:13→17:05)
[2019-03-24] MEDS: SUCRALFATE 1 GM TABLET PO SCH ×4 (06:13→19:59)
[2019-03-24 06:21] LABS: BASOPHILS # (AUTO) 0.02 x10^3/uL (0-0.1); BASOPHILS % (AUTO) 0 % (0-1); EOSINOPHILS # (AUTO) 0.14 x10^3/uL (0-0.4); EOSINOPHILS % (AUTO) 2 % (1-7); LYMPHOCYTES # (AUTO) 1.01 x10^3/uL (1-3.4); LYMPHOCYTES % (AUTO) 15 % (22-44); MD SCAN; MONOCYTES # (AUTO) 0.44 x10^3/uL (0.2-0.8); MONOCYTES % (AUTO) 7 % (2-9); NEUTROPHILS # (AUTO) 5.09 x10^3/uL (1.8-6.8); NEUTROPHILS % (AUTO) 76 % (42-75)
[2019-03-24 07:32] VITALS: BP 156/69
[2019-03-24] MEDS: ASPIRIN 81 MG TABLET EC PO SCH (08:08)
[2019-03-24] MEDS: FUROSEMIDE 40 MG TABLET PO SCH ×2 (08:16→17:06)
[2019-03-24] MEDS: SODIUM CHLORIDE FLUSH 10ML SYR IVF SCH ×2 (08:16→20:00)
[2019-03-24] MEDS: ROPINIROLE 0.25MG TABLET PO SCH (08:16)
[2019-03-24] MEDS: DOCUSATE 100 MG CAPSULE PO SCH (08:16)
[2019-03-24] MEDS: SEVELAMER CARBONATE 800MG TAB PO SCH ×3 (08:16→17:05)
[2019-03-24] MEDS: INSULIN LISPRO 100 UNITS/ML, PEN SQ-INSULIN SCH ×4 (08:50→21:37)
[2019-03-24 12:54] VITALS: BP 156/67
[2019-03-24] MEDS ORDERED: LIDODERM 5% PATCH TD PRN (13:00)
[2019-03-24 15:14] LABS: BASOPHILS # (AUTO) 0.03 x10^3/uL (0-0.1); BASOPHILS % (AUTO) 1 % (0-1); EOSINOPHILS # (AUTO) 0.16 x10^3/uL (0-0.4); EOSINOPHILS % (AUTO) 3 % (1-7); LYMPHOCYTES # (AUTO) 1.05 x10^3/uL (1-3.4); LYMPHOCYTES % (AUTO) 18 % (22-44); MD NO; MEAN CORPUSCULAR HEMOGLOBIN 33.9 pg (27.0-34.8); MEAN CORPUSCULAR VOLUME 99.8 fL (80-100); MEAN PLATELET VOLUME 6.5 fL (7.4-10.4); MONOCYTES # (AUTO) 0.34 x10^3/uL (0.2-0.8); MONOCYTES % (AUTO) 6 % (2-9); NEUTROPHILS # (AUTO) 4.33 x10^3/uL (1.8-6.8); NEUTROPHILS % (AUTO) 73 % (42-75); PLATELET COUNT 171 x10^3/uL (130-400); RED CELL DISTRIBUTION WIDTH 18.1 % (9.6-15.2)
[2019-03-24 15:22] LABS: ANION GAP 9 mmol/L (5-15); CALCIUM 8.6 mg/dL (8.5-10.1); CHLORIDE 100 mmol/L (98-107); CREATININE 3.47 mg/dL (0.55-1.02)
[2019-03-24 19:30] VITALS: BP 134/69
[2019-03-24] MEDS: LISINOPRIL 10 MG TABLET PO SCH (19:59)
[2019-03-24] MEDS: AMLODIPINE 5 MG TABLET PO SCH (20:00)
[2019-03-24 21:35] VITALS: BP 126/67
[2019-03-25 03:25] VITALS: BP 149/76
[2019-03-25] MEDS: ACETAMINOPHEN 650 MG/20.3 ML UDC PO PRN (03:36)
[2019-03-25 04:41] VITALS: BP 136/72
[2019-03-25] MEDS: SUCRALFATE 1 GM TABLET PO SCH ×4 (04:43→20:51)
[2019-03-25] MEDS: OMEPRAZOLE 20 MG CAPSULE.DR PO SCH ×3 (04:43→20:50)
[2019-03-25 06:22] LABS: BASOPHILS # (AUTO) 0.04 x10^3/uL (0-0.1); BASOPHILS % (AUTO) 1 % (0-1); EOSINOPHILS # (AUTO) 0.23 x10^3/uL (0-0.4); EOSINOPHILS % (AUTO) 5 % (1-7); LYMPHOCYTES # (AUTO) 1.22 x10^3/uL (1-3.4); LYMPHOCYTES % (AUTO) 26 % (22-44); MD NO; MEAN CORPUSCULAR HEMOGLOBIN 33.6 pg (27.0-34.8); MEAN CORPUSCULAR HGB CONC 33.3 g/dL (32.4-35.8); MEAN PLATELET VOLUME 7.2 fL (7.4-10.4); MONOCYTES # (AUTO) 0.39 x10^3/uL (0.2-0.8); MONOCYTES % (AUTO) 8 % (2-9); NEUTROPHILS # (AUTO) 2.88 x10^3/uL (1.8-6.8); NEUTROPHILS % (AUTO) 61 % (42-75); PLATELET COUNT 142 x10^3/uL (130-400); RED BLOOD COUNT 2.39 x10^6/uL (3.82-5.3); RED CELL DISTRIBUTION WIDTH 18.6 % (9.6-15.2)
[2019-03-25 06:29] LABS: ALBUMIN 2.8 g/dL (3.4-5.0); ANION GAP 12 mmol/L (5-15); CALCIUM 8.6 mg/dL (8.5-10.1); CHLORIDE 98 mmol/L (98-107)
[2019-03-25 06:36] LABS: ALANINE AMINOTRANSFERASE 26 U/L (12-78); ALKALINE PHOSPHATASE 123 U/L (45-117); BILIRUBIN,TOTAL 0.4 mg/dL (0.2-1.0); CREATININE 4.07 mg/dL (0.55-1.02); TOTAL IRON BINDING CAPACITY 288 mcg/dL (250-450); TOTAL PROTEIN 6.6 g/dL (6.4-8.2)
[2019-03-25 06:44] LABS: % IRON SATURATION 16 % (20-55); IRON LEVEL 46 mcg/dL (50-170)
[2019-03-25] MEDS: INSULIN LISPRO 100 UNITS/ML, PEN SQ-INSULIN SCH ×4 (07:00→20:50)
[2019-03-25 07:19] VITALS: BP 117/67
[2019-03-25] MEDS: ASPIRIN 81 MG TABLET EC PO SCH (08:39)
[2019-03-25] MEDS: SEVELAMER CARBONATE 800MG TAB PO SCH ×3 (08:40→16:48)
[2019-03-25] MEDS: ROPINIROLE 0.25MG TABLET PO SCH (08:41)
[2019-03-25] MEDS: FUROSEMIDE 40 MG TABLET PO SCH ×2 (08:41→16:47)
[2019-03-25] MEDS: DOCUSATE 100 MG CAPSULE PO SCH (08:41)
[2019-03-25] MEDS: SODIUM CHLORIDE FLUSH 10ML SYR IVF SCH ×2 (08:52→20:51)
[2019-03-25] MEDS ORDERED: DARBEPOETIN 100 MCG/ML SQ SCH (11:30)
[2019-03-25 13:15] VITALS: BP 123/65
[2019-03-25] MEDS: IRON SUCROSE COMPLEX 100MG/5ML IV SCH (14:05)
[2019-03-25] MEDS: AMLODIPINE 5 MG TABLET PO SCH (14:07)
[2019-03-25] MEDS: LISINOPRIL 10 MG TABLET PO SCH (14:07)
[2019-03-25] MEDS ORDERED: ONDANSETRON 2MG/ML, 2ML IVPush PRN (17:00)
[2019-03-25 20:36] VITALS: BP 113/64
[2019-03-26 00:20] VITALS: BP 137/65
[2019-03-26 05:36] VITALS: BP 135/68
[2019-03-26] MEDS: OMEPRAZOLE 20 MG CAPSULE.DR PO SCH ×2 (05:39→18:12)
[2019-03-26] MEDS: SUCRALFATE 1 GM TABLET PO SCH ×3 (05:39→18:12)
[2019-03-26] MEDS: ACETAMINOPHEN 650 MG/20.3 ML UDC PO PRN (05:39)
[2019-03-26 06:59] LABS: BASOPHILS # (AUTO) 0.03 x10^3/uL (0-0.1); BASOPHILS % (AUTO) 1 % (0-1); EOSINOPHILS # (AUTO) 0.23 x10^3/uL (0-0.4); EOSINOPHILS % (AUTO) 6 % (1-7); LYMPHOCYTES # (AUTO) 1.32 x10^3/uL (1-3.4); LYMPHOCYTES % (AUTO) 34 % (22-44); MD NO; MEAN CORPUSCULAR HEMOGLOBIN 33.8 pg (27.0-34.8); MEAN CORPUSCULAR HGB CONC 33.7 g/dL (32.4-35.8); MEAN CORPUSCULAR VOLUME 100.1 fL (80-100); MONOCYTES # (AUTO) 0.43 x10^3/uL (0.2-0.8); MONOCYTES % (AUTO) 11 % (2-9); NEUTROPHILS # (AUTO) 1.92 x10^3/uL (1.8-6.8); NEUTROPHILS % (AUTO) 49 % (42-75); PLATELET COUNT 165 x10^3/uL (130-400); RED BLOOD COUNT 2.32 x10^6/uL (3.82-5.3); RED CELL DISTRIBUTION WIDTH 17.9 % (9.6-15.2)
[2019-03-26] MEDS: INSULIN LISPRO 100 UNITS/ML, PEN SQ-INSULIN SCH ×3 (07:00→16:00)
[2019-03-26 07:11] LABS: ALANINE AMINOTRANSFERASE 21 U/L (12-78); ALBUMIN 2.7 g/dL (3.4-5.0); ANION GAP 15 mmol/L (5-15); CALCIUM 9.6 mg/dL (8.5-10.1); CHLORIDE 94 mmol/L (98-107); CREATININE 5.79 mg/dL (0.55-1.02)
[2019-03-26 07:13] LABS: ALKALINE PHOSPHATASE 105 U/L (45-117); BILIRUBIN,TOTAL 0.4 mg/dL (0.2-1.0); TOTAL PROTEIN 6.5 g/dL (6.4-8.2)
[2019-03-26] MEDS: DOCUSATE 100 MG CAPSULE PO SCH (08:55)
[2019-03-26] MEDS: ASPIRIN 81 MG TABLET EC PO SCH (08:55)
[2019-03-26] MEDS: SEVELAMER CARBONATE 800MG TAB PO SCH ×3 (08:55→17:00)
[2019-03-26] MEDS: ROPINIROLE 0.25MG TABLET PO SCH (08:55)
[2019-03-26] MEDS: LISINOPRIL 10 MG TABLET PO SCH (08:55)
[2019-03-26] MEDS: FUROSEMIDE 40 MG TABLET PO SCH ×2 (08:55→18:12)
[2019-03-26] MEDS: AMLODIPINE 5 MG TABLET PO SCH (08:55)
[2019-03-26] MEDS: SODIUM CHLORIDE FLUSH 10ML SYR IVF SCH (08:59)
[2019-03-26 09:00] VITALS: BP 129/66
[2019-03-26] MEDS: IRON SUCROSE COMPLEX 100MG/5ML IV SCH (13:02)
[2019-03-26 13:50] VITALS: BP 130/66
[2019-03-26] MEDS ORDERED: DARB100V SQ (16:24)
[2019-03-26 18:15] VITALS: BP 117/50
== END 2019-03-26 19:09 | disposition home or self-care (01) | DRG 291 ==
LOC: ED 23:18 → 5SO 23:26 → UNDOADMIN 23:26 → EDIP 23:26 → UNDOADMIN 23:40 → EDIP 23:40 → 5SO 23:44
PROVIDERS: ADMIT Family Medicine; ATTEND Family Medicine
PROC: 5A1D70Z Performance of Urinary Filtration, Intermittent, Less than 6 Hours Per Day (ICD-10-PCS; principal; 2019-03-24)
PROC: 5A1D70Z Performance of Urinary Filtration, Intermittent, Less than 6 Hours Per Day (ICD-10-PCS; 2019-03-25)
PROC: 5A1D70Z Performance of Urinary Filtration, Intermittent, Less than 6 Hours Per Day (ICD-10-PCS; 2019-03-26)
DX: I13.2 Hypertensive heart and chronic kidney disease with heart failure and with stage 5 chronic kidney disease, or end stage renal disease (principal); J96.21 Acute and chronic respiratory failure with hypoxia; N18.6 End stage renal disease; E11.22 Type 2 diabetes mellitus with diabetic chronic kidney disease; E78.5 Hyperlipidemia, unspecified; G89.29 Other chronic pain; I50.9 Heart failure, unspecified; J45.909 Unspecified asthma, uncomplicated; Z79.4 Long term (current) use of insulin; Z87.891 Personal history of nicotine dependence; Z99.2 Dependence on renal dialysis
CPT/HCPCS: 36415; 71045; 71046; 80048; 80053; 82306; 82728; 82962; 83540; 83550; 83690; 83735; 83880; 83970; 84100; 84484; 84550; 85025; 93005; 96374; G0378; J0881; J1756; J1940; J2405; J1815

== ENCOUNTER 2019-05-11 19:10 | Inpatient (IN) | payer BC, MEDICARE ==
[~2019-05-11] VITALS: Ht 157.5 cm; Wt 63.7 kg
[~2019-05-11 19:10] MED LIST changes: +DARB100V SQ
[2019-05-11] MEDS ORDERED: methylPREDNISolone SOD SUCC 125 MG/2 ML IVPush STA (19:41)
[2019-05-11] MEDS ORDERED: NITROGLYCERIN OINT 2%, 1GM TP ONE ×2 (20:00→20:06)
[2019-05-11] MEDS ORDERED: SODIUM CHLORIDE FLUSH 10ML SYR IVF ONE (20:00)
[2019-05-11 20:06] LABS: BASOPHILS # (AUTO) 0.01 x10^3/uL (0-0.1); BASOPHILS % (AUTO) 0 % (0-1); EOSINOPHILS % (AUTO) 9 % (1-7); LYMPHOCYTES # (AUTO) 0.96 x10^3/uL (1-3.4); LYMPHOCYTES % (AUTO) 12 % (22-44); MD NO; MEAN CORPUSCULAR HEMOGLOBIN 34.3 pg (27.0-34.8); MEAN CORPUSCULAR HGB CONC 32.6 g/dL (32.4-35.8); MEAN PLATELET VOLUME 7.3 fL (7.4-10.4); MONOCYTES # (AUTO) 0.37 x10^3/uL (0.2-0.8); MONOCYTES % (AUTO) 5 % (2-9); NEUTROPHILS # (AUTO) 6.07 x10^3/uL (1.8-6.8); NEUTROPHILS % (AUTO) 75 % (42-75); PLATELET COUNT 206 x10^3/uL (130-400); RED BLOOD COUNT 3.07 x10^6/uL (3.82-5.3); RED CELL DISTRIBUTION WIDTH 16.1 % (9.6-15.2)
[2019-05-11] MEDS ORDERED: methylPREDNISolone SOD SUCC 125 MG/2 ML ONE (20:06)
[2019-05-11 20:13] LABS: ALANINE AMINOTRANSFERASE 17 U/L (12-78); ALBUMIN 3.3 g/dL (3.4-5.0); ANION GAP 10 mmol/L (5-15); CALCIUM 9.4 mg/dL (8.5-10.1); CHLORIDE 103 mmol/L (98-107); CREATININE 6.87 mg/dL (0.55-1.02)
[2019-05-11 20:17] LABS: ALKALINE PHOSPHATASE 109 U/L (45-117); BILIRUBIN,TOTAL 0.4 mg/dL (0.2-1.0); TOTAL PROTEIN 7.2 g/dL (6.4-8.2); TROPONIN I 0.141 ng/mL (0.000-0.045)
[2019-05-11] MEDS ORDERED: FUROSEMIDE 40 MG/4 ML IV ONE (21:00)
[2019-05-11] MEDS ORDERED: FUROSEMIDE 40 MG/4 ML ONE (21:45)
[2019-05-11] MEDS ORDERED: DOCUSATE 100 MG CAPSULE PO PRN (23:00)
[2019-05-11] MEDS ORDERED: LABETALOL 5MG/ML, 20ML IVPush PRN (23:00)
[2019-05-11] MEDS ORDERED: ACETAMINOPHEN 325 MG TABLET PO PRN (23:00)
[2019-05-11] MEDS ORDERED: ONDANSETRON ODT 4 MG PO PRN (23:00)
[2019-05-12] MEDS: HEPARIN 5,000 UNITS/ML, 1ML SQ SCH ×3 (00:51→16:31)
--- NOTE | 2019-05-12 01:52 | NUR ---
PT BELONGINGS WERE ACCIDENTALLY LEFT IN ER ROOM WHEN PT WAS TRANSPORTED TO ADMIT BED. THIS RN GATHERED BELONGINGS AND BROUGHT THESE ITEMS TO THE PT. SHE LOOKED THROUGH THEM AND CONFIRMED THIS IS THE REST OF HER BELONGINGS. PT DENIES FURTHER NEEDS. RETAIL GREETING CARD MERCHANDISER INFORMED.
[2019-05-12 02:00] VITALS: BP 167/62
[2019-05-12 02:54] VITALS: BP 186/74
[2019-05-12 05:48] LABS: BASOPHILS # (AUTO) 0.01 x10^3/uL (0-0.1); BASOPHILS % (AUTO) 0 % (0-1); EOSINOPHILS % (AUTO) 0 % (1-7); LYMPHOCYTES # (AUTO) 0.52 x10^3/uL (1-3.4); LYMPHOCYTES % (AUTO) 10 % (22-44); MD NO; MEAN CORPUSCULAR HEMOGLOBIN 34.6 pg (27.0-34.8); MEAN CORPUSCULAR HGB CONC 33.7 g/dL (32.4-35.8); MEAN CORPUSCULAR VOLUME 102.7 fL (80-100); MEAN PLATELET VOLUME 7.7 fL (7.4-10.4); MONOCYTES # (AUTO) 0.05 x10^3/uL (0.2-0.8); MONOCYTES % (AUTO) 1 % (2-9); NEUTROPHILS # (AUTO) 4.71 x10^3/uL (1.8-6.8); NEUTROPHILS % (AUTO) 89 % (42-75); PLATELET COUNT 184 x10^3/uL (130-400)
[2019-05-12 06:04] LABS: ANION GAP 12 mmol/L (5-15); CALCIUM 9.4 mg/dL (8.5-10.1); CHLORIDE 102 mmol/L (98-107)
[2019-05-12] MEDS: OMEPRAZOLE 20 MG CAPSULE.DR PO SCH ×2 (06:16→16:32)
[2019-05-12 06:47] LABS: TROPONIN I 0.085 ng/mL (0.000-0.045)
[2019-05-12] MEDS: AMLODIPINE 5 MG TABLET PO SCH (09:00)
[2019-05-12] MEDS: LISINOPRIL 10 MG TABLET PO SCH (09:02)
[2019-05-12] MEDS: ASPIRIN 81 MG TABLET EC PO SCH (09:02)
[2019-05-12] MEDS: SEVELAMER CARBONATE 800MG TAB PO SCH ×3 (09:02→16:32)
[2019-05-12] MEDS: SUCRALFATE 1 GM TABLET PO SCH ×4 (09:02→20:51)
[2019-05-12] MEDS: CARVEDILOL 6.25 MG TABLET PO SCH ×2 (09:03→20:51)
[2019-05-12] MEDS: FUROSEMIDE 40 MG TABLET PO SCH ×2 (09:03→20:52)
[2019-05-12] MEDS: ROPINIROLE 0.25MG TABLET PO SCH (09:03)
[2019-05-12 09:34] VITALS: BP 156/65
[2019-05-12 14:51] VITALS: BP 161/70
[2019-05-12] MEDS ORDERED: GLUCAGON 1 MG IM PRN (17:30)
[2019-05-12] MEDS ORDERED: DEXTROSE 4 GM TAB.CHEW PO PRN (17:30)
[2019-05-12] MEDS ORDERED: DEXTROSE 50%, 50ML SYRINGE IVPush PRN (17:30)
[2019-05-12] MEDS: SODIUM CHLORIDE FLUSH 10ML SYR IVF SCH (20:52)
[2019-05-12] MEDS: INSULIN LISPRO 100 UNITS/ML, PEN SQ-INSULIN SCH (20:52)
[2019-05-12 20:53] VITALS: BP 144/69
[2019-05-12] MEDS: HYDROcodone/APAP 5/325 TABLET PO PRN (22:53)
[2019-05-13] MEDS: HEPARIN 5,000 UNITS/ML, 1ML SQ SCH ×4 (00:26→23:01)
[2019-05-13 01:00] VITALS: BP 145/71
[2019-05-13] MEDS: OMEPRAZOLE 20 MG CAPSULE.DR PO SCH ×2 (06:11→15:57)
[2019-05-13 06:18] LABS: BASOPHILS # (AUTO) 0.03 x10^3/uL (0-0.1); BASOPHILS % (AUTO) 1 % (0-1); EOSINOPHILS # (AUTO) 0.45 x10^3/uL (0-0.4); EOSINOPHILS % (AUTO) 8 % (1-7); LYMPHOCYTES # (AUTO) 1.78 x10^3/uL (1-3.4); LYMPHOCYTES % (AUTO) 31 % (22-44); MD NO; MEAN CORPUSCULAR HEMOGLOBIN 34.9 pg (27.0-34.8); MEAN CORPUSCULAR HGB CONC 33.4 g/dL (32.4-35.8); MEAN CORPUSCULAR VOLUME 104.6 fL (80-100); MEAN PLATELET VOLUME 7.8 fL (7.4-10.4); MONOCYTES # (AUTO) 0.26 x10^3/uL (0.2-0.8); MONOCYTES % (AUTO) 5 % (2-9); NEUTROPHILS # (AUTO) 3.23 x10^3/uL (1.8-6.8); NEUTROPHILS % (AUTO) 56 % (42-75); PLATELET COUNT 167 x10^3/uL (130-400); RED BLOOD COUNT 2.58 x10^6/uL (3.82-5.3); RED CELL DISTRIBUTION WIDTH 16.7 % (9.6-15.2)
[2019-05-13 06:22] LABS: ALANINE AMINOTRANSFERASE 19 U/L (12-78); ALBUMIN 2.9 g/dL (3.4-5.0); ANION GAP 11 mmol/L (5-15); CALCIUM 8.7 mg/dL (8.5-10.1); CHLORIDE 102 mmol/L (98-107); CREATININE 5.08 mg/dL (0.55-1.02)
[2019-05-13 06:24] LABS: ALKALINE PHOSPHATASE 92 U/L (45-117); BILIRUBIN,TOTAL 0.7 mg/dL (0.2-1.0); TOTAL PROTEIN 6.4 g/dL (6.4-8.2)
[2019-05-13 06:58] VITALS: BP 136/70
[2019-05-13] MEDS: SEVELAMER CARBONATE 800MG TAB PO SCH ×3 (07:29→16:00)
[2019-05-13] MEDS: SUCRALFATE 1 GM TABLET PO SCH ×4 (07:29→20:29)
[2019-05-13] MEDS: INSULIN LISPRO 100 UNITS/ML, PEN SQ-INSULIN SCH ×4 (07:50→20:30)
[2019-05-13] MEDS: SODIUM CHLORIDE FLUSH 10ML SYR IVF SCH ×2 (07:51→20:30)
[2019-05-13] MEDS: CARVEDILOL 6.25 MG TABLET PO SCH ×2 (07:51→20:29)
[2019-05-13] MEDS: FUROSEMIDE 40 MG TABLET PO SCH ×2 (07:51→20:29)
[2019-05-13] MEDS: ASPIRIN 81 MG TABLET EC PO SCH (07:51)
[2019-05-13] MEDS: ROPINIROLE 0.25MG TABLET PO SCH (07:52)
[2019-05-13] MEDS: LISINOPRIL 10 MG TABLET PO SCH (07:52)
[2019-05-13] MEDS: AMLODIPINE 5 MG TABLET PO SCH (07:52)
[2019-05-13] MEDS: HYDROcodone/APAP 5/325 TABLET PO PRN ×2 (09:29→20:29)
[2019-05-13 12:44] VITALS: BP 122/65
[2019-05-13 19:09] VITALS: BP 147/70
[2019-05-14 00:22] VITALS: BP 151/69
[2019-05-14] MEDS: OMEPRAZOLE 20 MG CAPSULE.DR PO SCH (05:33)
[2019-05-14 05:53] LABS: BASOPHILS # (AUTO) 0.03 x10^3/uL (0-0.1); BASOPHILS % (AUTO) 1 % (0-1); EOSINOPHILS % (AUTO) 11 % (1-7); LYMPHOCYTES # (AUTO) 2.06 x10^3/uL (1-3.4); LYMPHOCYTES % (AUTO) 37 % (22-44); MD NO; MEAN CORPUSCULAR HEMOGLOBIN 34.6 pg (27.0-34.8); MEAN CORPUSCULAR HGB CONC 33.1 g/dL (32.4-35.8); MEAN CORPUSCULAR VOLUME 104.5 fL (80-100); MEAN PLATELET VOLUME 6.9 fL (7.4-10.4); MONOCYTES # (AUTO) 0.35 x10^3/uL (0.2-0.8); MONOCYTES % (AUTO) 6 % (2-9); NEUTROPHILS % (AUTO) 46 % (42-75); PLATELET COUNT 169 x10^3/uL (130-400); RED BLOOD COUNT 2.71 x10^6/uL (3.82-5.3); RED CELL DISTRIBUTION WIDTH 16.8 % (9.6-15.2)
[2019-05-14 05:58] LABS: CHLORIDE 101 mmol/L (98-107)
[2019-05-14 06:03] LABS: ALANINE AMINOTRANSFERASE 16 U/L (12-78); ALBUMIN 2.8 g/dL (3.4-5.0); ALKALINE PHOSPHATASE 88 U/L (45-117); ANION GAP 11 mmol/L (5-15); BILIRUBIN,TOTAL 0.5 mg/dL (0.2-1.0); CALCIUM 8.7 mg/dL (8.5-10.1); CREATININE 6.81 mg/dL (0.55-1.02)
[2019-05-14 06:49] VITALS: BP 149/69
[2019-05-14] MEDS: FUROSEMIDE 40 MG TABLET PO SCH (07:56)
[2019-05-14] MEDS: ROPINIROLE 0.25MG TABLET PO SCH (07:56)
[2019-05-14] MEDS: CARVEDILOL 6.25 MG TABLET PO SCH (07:56)
[2019-05-14] MEDS: ASPIRIN 81 MG TABLET EC PO SCH (07:56)
[2019-05-14] MEDS: SUCRALFATE 1 GM TABLET PO SCH ×2 (07:56→11:20)
[2019-05-14] MEDS: SODIUM CHLORIDE FLUSH 10ML SYR IVF SCH (07:57)
[2019-05-14] MEDS: SEVELAMER CARBONATE 800MG TAB PO SCH ×2 (07:57→11:20)
[2019-05-14] MEDS: AMLODIPINE 5 MG TABLET PO SCH (07:57)
[2019-05-14] MEDS: INSULIN LISPRO 100 UNITS/ML, PEN SQ-INSULIN SCH ×2 (07:57→11:21)
[2019-05-14] MEDS: LISINOPRIL 10 MG TABLET PO SCH (07:57)
[2019-05-14] MEDS: HEPARIN 5,000 UNITS/ML, 1ML SQ SCH (07:57)
== END 2019-05-14 13:40 | disposition home or self-care (01) | DRG 280 ==
LOC: ED 19:21 → EDIP 21:49 → ICU 05-12 00:20 → 4WST 05-12 17:58
PROVIDERS: ADMIT Family Medicine; ATTEND Family Medicine
PROC: 5A1D70Z Performance of Urinary Filtration, Intermittent, Less than 6 Hours Per Day (ICD-10-PCS; principal; 2019-05-11)
DX: I21.4 Non-ST elevation (NSTEMI) myocardial infarction (principal); J96.01 Acute respiratory failure with hypoxia; N18.6 End stage renal disease; J18.9 Pneumonia, unspecified organism; I13.2 Hypertensive heart and chronic kidney disease with heart failure and with stage 5 chronic kidney disease, or end stage renal disease; D63.1 Anemia in chronic kidney disease; E10.22 Type 1 diabetes mellitus with diabetic chronic kidney disease; E78.5 Hyperlipidemia, unspecified; E87.5 Hyperkalemia; I05.0 Rheumatic mitral stenosis; I50.9 Heart failure, unspecified; J45.909 Unspecified asthma, uncomplicated; Z79.4 Long term (current) use of insulin; Z87.891 Personal history of nicotine dependence; Z99.2 Dependence on renal dialysis; Z79.899 Other long term (current) drug therapy; Z90.49 Acquired absence of other specified parts of digestive tract
CPT/HCPCS: 36415; 71045; 80048; 80053; 82962; 83880; 84484; 85025; 87081; 90935; 93005; 96374; G0378; J1644; J1940; J1815; J2930

== ENCOUNTER 2020-03-21 22:19 | Inpatient (IN) | payer BC, MEDICARE ==
[~2020-03-21] VITALS: Ht 157.5 cm; Wt 60.0 kg
[~2020-03-21 22:19] MED LIST changes: -ALEN70TA6 PO; +ALEN70TA77 PO; +AMLO-210 PO; -AMLO5TAB10 PO
--- NOTE | 2020-03-21 22:30 | NUR ---
PT BIB [facility] FROM HOME FOR C/O RECTAL BLEEDING AND N/V. PER EMS, PT WAS DX WITH "BLEEDING HERNIA" BY PCP JASWINDER 5 DAYS AGO. PT HAS HX DM AND CKD, HAS DIALYSIS M,W,F. VSS PER EMS, HR 70s SR. FSBS READ "HIGH" (>600). PT ARRIVES TO ED A&OX4, SLIGHTLY FATIGUED, NAUSEOUS & DRY HEAVING. MEDICAL STUDENT WORKING WITH DR. FELTON AT BS.
--- NOTE | 2020-03-21 22:48 | NUR ---
ERP AT NOW.
[2020-03-21] MEDS ORDERED: PANTOPRAZOLE 80 MG in SODIUM CHLORIDE 0.9% 50 ML IVPB ONE (23:00)
[2020-03-21] MEDS ORDERED: ONDANSETRON 2MG/ML, 2ML IVPush ONE (23:00)
[2020-03-21] MEDS ORDERED: ONDANSETRON 2MG/ML, 2ML ONE (23:20)
--- NOTE | 2020-03-21 23:25 | NUR ---
Cleaned patient and juju care performed. Patient not actively bleeding.
[2020-03-21] MEDS ORDERED: PANTOPRAZOLE 80 MG in SODIUM CHLORIDE 0.9% 100 ML IV SCH (23:30)
[2020-03-21 23:39] LABS: MEAN CORPUSCULAR HEMOGLOBIN 36.3 pg (27.0-34.8); MEAN CORPUSCULAR HGB CONC 34.3 g/dL (32.4-35.8); MEAN PLATELET VOLUME 7.7 fL (7.4-10.4); PLATELET COUNT 174 x10^3/uL (130-400); RED BLOOD COUNT 1.42 x10^6/uL (3.82-5.3); RED CELL DISTRIBUTION WIDTH 15.8 % (9.6-15.2)
[2020-03-21 23:49] LABS: ALANINE AMINOTRANSFERASE 23 U/L (12-78); ALBUMIN 3.1 g/dL (3.4-5.0); ANION GAP 19 mmol/L (5-15); CALCIUM 8.7 mg/dL (8.5-10.1); CHLORIDE 98 mmol/L (98-107); CREATININE 7.92 mg/dL (0.55-1.02)
[2020-03-21 23:52] LABS: INTERNATIONAL NORMALIZED RATIO 1.23 (0.93-1.1); PROTHROMBIN TIME 13.1 Seconds (9.6-11.5)
[2020-03-21 23:53] LABS: ALKALINE PHOSPHATASE 87 U/L (45-117); BILIRUBIN,TOTAL 0.4 mg/dL (0.2-1.0); TOTAL PROTEIN 6.2 g/dL (6.4-8.2); TROPONIN I < 0.015 ng/mL (0.000-0.045)
[2020-03-22] VITALS (21 sets, daily range): BP systolic 115–188; BP diastolic 30–68
[2020-03-22] MEDS ORDERED: ONDANSETRON 2MG/ML, 2ML ONE (00:04)
[2020-03-22 00:07] LABS: MD YES
[2020-03-22 00:09] LABS: BASOS#(MANUAL) 0.08 x10^3/uL (0-0.1); BASOS% (MANUAL) 1 % (0-1); LYMPH#(MANUAL) 2.27 x10^3/uL (1-3.4); LYMPHS% (MANUAL) 27 % (22-44); METAMYELOCYTES# (MANUAL) 0.08 x10^3/uL (0-0); METAMYELOCYTES% (MANUAL) 1 % (0-1); MONOS#(MANUAL) 0.17 x10^3/uL (0.3-2.7); MONOS% (MANUAL) 2 % (2-9); MYELOCYTES# (MANUAL) 0.08 x10^3/uL (0-0); MYELOCYTES% (MANUAL) 1 % (0-0); SEG#(MANUAL) 5.71 x10^3/uL (1.8-6.8); SEGS% (MANUAL) 68 % (42-75)
[2020-03-22 00:10] LABS: <PLATELET ESTIMATE> ADEQUATE; ANISOCYTOSIS 1+; OVALOCYTES 1+; TOXIC GRAN 1+
[2020-03-22 00:11] LABS: <PLT MORPHOLOGY> NORMAL PLT MORPH
[2020-03-22] MEDS ORDERED: FENTANYL PF 100 MCG/2ML ONE ×2 (00:43→13:41)
[2020-03-22] MEDS ORDERED: ONDANSETRON 2MG/ML, 2ML IVPush PRN (01:00)
[2020-03-22] MEDS ORDERED: FENTANYL PF 100 MCG/2ML IVPush ONE (01:00)
[2020-03-22] MEDS ORDERED: PANTOPRAZOLE 80 MG in SODIUM CHLORIDE 0.9% 100 ML IV SCH (01:00)
--- NOTE | 2020-03-22 01:10 | NUR ---
Blood transfusion initiated.
--- NOTE | 2020-03-22 01:32 | NUR ---
BREAK RN; [facility] ADMITTING MD AT BEDSIDE FOR ADMISSION, DIPTI TRANSFUISKAROLYN LINDQUIST, PT IN NAD AT THIS TIME
[2020-03-22] MEDS ORDERED: DEXTROSE 4 GM TAB.CHEW PO PRN (02:00)
[2020-03-22] MEDS ORDERED: DEXTROSE 50%, 50ML SYRINGE IVPush PRN (02:00)
[2020-03-22] MEDS ORDERED: MORPHINE SULFATE 4 MG/ML, 1ML IVPush PRN (02:00)
[2020-03-22] MEDS ORDERED: GLUCAGON 1 MG IM PRN (02:00)
[2020-03-22] MEDS ORDERED: SODIUM CHLORIDE 0.9% 1,000 ML IV SCH (02:00)
--- NOTE | 2020-03-22 02:15 | NUR ---
Report given to DARREL Maravilla. Patient to be transferred to room 546.
[2020-03-22] MEDS: INSULIN LISPRO 100 UNITS/ML, PEN SQ-INSULIN SCH ×5 (02:31→20:52)
[2020-03-22] MEDS: PANTOPRAZOLE 80 MG in SODIUM CHLORIDE 0.9% 100 ML IV SCH ×3 (02:33→20:06)
[2020-03-22] MEDS: MORPHINE SULFATE 4 MG/ML, 1ML IVPush PRN ×4 (04:50→23:39)
[2020-03-22] MEDS: SODIUM CHLORIDE FLUSH 10ML SYR IVF SCH ×2 (07:48→20:50)
[2020-03-22] MEDS: CARVEDILOL 6.25 MG TABLET PO SCH ×2 (08:26→23:23)
[2020-03-22] MEDS: SEVELAMER CARBONATE 800MG TAB PO SCH ×3 (08:26→16:48)
[2020-03-22] MEDS: ROPINIROLE 0.25MG TABLET PO SCH (08:26)
[2020-03-22] MEDS: ONDANSETRON 2MG/ML, 2ML IV PRN ×2 (08:47→19:48)
[2020-03-22 12:19] LABS: CHLORIDE 103 mmol/L (98-107)
[2020-03-22 12:22] LABS: BASOPHILS % (AUTO) 1 % (0-1); EOSINOPHILS % (AUTO) 3 % (1-7); LYMPHOCYTES % (AUTO) 28 % (22-44); MEAN CORPUSCULAR HEMOGLOBIN 32.2 pg (27.0-34.8); MEAN CORPUSCULAR HGB CONC 35.1 g/dL (32.4-35.8); MEAN PLATELET VOLUME 7.5 fL (7.4-10.4); MONOCYTES % (AUTO) 8 % (2-9); NEUTROPHILS % (AUTO) 61 % (42-75); PLATELET COUNT 127 x10^3/uL (130-400); RED BLOOD COUNT 3.34 x10^6/uL (3.82-5.3); RED CELL DISTRIBUTION WIDTH 16.9 % (9.6-15.2)
[2020-03-22 12:26] LABS: ANION GAP 12 mmol/L (5-15); CALCIUM 8.6 mg/dL (8.5-10.1); CREATININE 8.06 mg/dL (0.55-1.02)
[2020-03-22 12:27] LABS: MD NO
[2020-03-22] MEDS ORDERED: MIDAZOLAM 1 MG/ML, 5ML ONE (13:41)
[2020-03-22] MEDS ORDERED: EPINEPHRINE SYRINGE 0.1 MG/ML, 10ML ONE (15:12)
[2020-03-22] MEDS ORDERED: ENALAPRILAT 1.25 MG/ML, 2ML IV PRN (16:00)
[2020-03-22] MEDS: SUCRALFATE 1 GM/10 ML UDC PO SCH ×2 (16:48→23:23)
[2020-03-23] VITALS (9 sets, daily range): BP systolic 103–154; BP diastolic 30–52
[2020-03-23] MEDS: MORPHINE SULFATE 4 MG/ML, 1ML IVPush PRN ×2 (03:18→08:00)
[2020-03-23 04:00] LABS: BASOPHILS % (AUTO) 1 % (0-1); EOSINOPHILS % (AUTO) 2 % (1-7); LYMPHOCYTES % (AUTO) 20 % (22-44); MEAN CORPUSCULAR HEMOGLOBIN 32.1 pg (27.0-34.8); MEAN CORPUSCULAR HGB CONC 35.4 g/dL (32.4-35.8); MEAN PLATELET VOLUME 7.3 fL (7.4-10.4); MONOCYTES % (AUTO) 5 % (2-9); NEUTROPHILS % (AUTO) 72 % (42-75); PLATELET COUNT 140 x10^3/uL (130-400); RED BLOOD COUNT 3.27 x10^6/uL (3.82-5.3); RED CELL DISTRIBUTION WIDTH 17.8 % (9.6-15.2)
[2020-03-23 04:01] LABS: MD NO
[2020-03-23 04:02] LABS: ALANINE AMINOTRANSFERASE 18 U/L (12-78); ALBUMIN 2.6 g/dL (3.4-5.0); ANION GAP 9 mmol/L (5-15); CHLORIDE 101 mmol/L (98-107)
[2020-03-23 04:05] LABS: % IRON SATURATION 57 % (20-55); ALKALINE PHOSPHATASE 52 U/L (45-117); BILIRUBIN,TOTAL 0.5 mg/dL (0.2-1.0); CREATININE 4.55 mg/dL (0.55-1.02); IRON LEVEL 117 mcg/dL (50-170); TOTAL IRON BINDING CAPACITY 207 mcg/dL (250-450); TOTAL PROTEIN 5.4 g/dL (6.4-8.2)
[2020-03-23 04:36] LABS: MICROSCOPIC INDICATED
[2020-03-23] MEDS: PANTOPRAZOLE 80 MG in SODIUM CHLORIDE 0.9% 100 ML IV SCH (05:26)
[2020-03-23] MEDS ORDERED: CEFTRIAXONE PMX 2GM/50ML 50 ML IVPB SCH (07:30)
[2020-03-23] MEDS: SUCRALFATE 1 GM/10 ML UDC PO SCH ×4 (07:50→21:30)
[2020-03-23] MEDS: INSULIN LISPRO 100 UNITS/ML, PEN SQ-INSULIN SCH ×4 (07:53→21:00)
[2020-03-23] MEDS ORDERED: ARANESP 100 MCG/ML **ESRD SQ SCH (08:00)
[2020-03-23] MEDS: SODIUM CHLORIDE FLUSH 10ML SYR IVF SCH ×2 (08:00→21:30)
[2020-03-23] MEDS ORDERED: AMLODIPINE 5 MG TABLET PO SCH (09:00)
[2020-03-23] MEDS ORDERED: LISINOPRIL 10 MG TABLET PO SCH (09:00)
[2020-03-23] MEDS: SEVELAMER CARBONATE 800MG TAB PO SCH ×3 (09:24→17:05)
[2020-03-23] MEDS: CARVEDILOL 6.25 MG TABLET PO SCH ×2 (09:25→21:31)
[2020-03-23] MEDS: PANTOPRAZOLE 40MG TABLET PO SCH ×2 (09:25→21:30)
[2020-03-23] MEDS: FUROSEMIDE 20 MG TABLET PO SCH ×2 (09:25→21:31)
[2020-03-23] MEDS: ROPINIROLE 0.25MG TABLET PO SCH (09:25)
[2020-03-24] MEDS: MORPHINE SULFATE 4 MG/ML, 1ML IVPush PRN ×2 (01:24→06:48)
[2020-03-24 02:00] VITALS: BP 125/45
[2020-03-24 04:25] LABS: BASOPHILS % (AUTO) 0 % (0-1); EOSINOPHILS % (AUTO) 3 % (1-7); LYMPHOCYTES % (AUTO) 20 % (22-44); MEAN CORPUSCULAR HEMOGLOBIN 32.2 pg (27.0-34.8); MEAN CORPUSCULAR HGB CONC 34.5 g/dL (32.4-35.8); MEAN PLATELET VOLUME 7.4 fL (7.4-10.4); MONOCYTES % (AUTO) 8 % (2-9); NEUTROPHILS % (AUTO) 69 % (42-75); PLATELET COUNT 124 x10^3/uL (130-400); RED BLOOD COUNT 3.03 x10^6/uL (3.82-5.3); RED CELL DISTRIBUTION WIDTH 17.6 % (9.6-15.2)
[2020-03-24 04:29] LABS: MD NO
[2020-03-24 04:34] LABS: ALBUMIN 2.5 g/dL (3.4-5.0); ANION GAP 10 mmol/L (5-15); CHLORIDE 100 mmol/L (98-107)
[2020-03-24 04:38] LABS: ALANINE AMINOTRANSFERASE 15 U/L (12-78); ALKALINE PHOSPHATASE 42 U/L (45-117); BILIRUBIN,TOTAL 0.4 mg/dL (0.2-1.0); CREATININE 6.52 mg/dL (0.55-1.02)
[2020-03-24] MEDS: CARVEDILOL 6.25 MG TABLET PO SCH ×2 (08:35→20:31)
[2020-03-24] MEDS: PANTOPRAZOLE 40MG TABLET PO SCH ×2 (08:35→20:31)
[2020-03-24] MEDS: SODIUM CHLORIDE FLUSH 10ML SYR IVF SCH ×2 (08:35→20:31)
[2020-03-24] MEDS: SEVELAMER CARBONATE 800MG TAB PO SCH ×3 (08:35→17:34)
[2020-03-24] MEDS: ROPINIROLE 0.25MG TABLET PO SCH (08:35)
[2020-03-24] MEDS: SUCRALFATE 1 GM/10 ML UDC PO SCH ×4 (08:35→20:31)
[2020-03-24] MEDS: AMLODIPINE 5 MG TABLET PO SCH (08:37)
[2020-03-24] MEDS: LISINOPRIL 10 MG TABLET PO SCH (08:40)
[2020-03-24] MEDS: FUROSEMIDE 80 MG TABLET PO SCH ×2 (08:42→20:31)
[2020-03-24 08:45] VITALS: BP 146/49
[2020-03-24] MEDS: INSULIN LISPRO 100 UNITS/ML, PEN SQ-INSULIN SCH ×4 (08:45→20:31)
[2020-03-24] MEDS ORDERED: ALBUMIN HUMAN 25% 100 ML IV PRN (15:00)
[2020-03-24 15:50] VITALS: BP 122/41
[2020-03-24 20:00] VITALS: BP 153/57
[2020-03-25 02:00] VITALS: BP 138/42
[2020-03-25 03:52] LABS: BASOPHILS % (AUTO) 0 % (0-1); EOSINOPHILS % (AUTO) 4 % (1-7); LYMPHOCYTES % (AUTO) 17 % (22-44); MEAN CORPUSCULAR HEMOGLOBIN 32.3 pg (27.0-34.8); MEAN CORPUSCULAR HGB CONC 34.5 g/dL (32.4-35.8); MEAN PLATELET VOLUME 7.3 fL (7.4-10.4); MONOCYTES % (AUTO) 8 % (2-9); NEUTROPHILS % (AUTO) 71 % (42-75); PLATELET COUNT 118 x10^3/uL (130-400); RED BLOOD COUNT 2.91 x10^6/uL (3.82-5.3); RED CELL DISTRIBUTION WIDTH 17.4 % (9.6-15.2)
[2020-03-25 03:55] LABS: MD NO
[2020-03-25 04:06] LABS: CHLORIDE 98 mmol/L (98-107)
[2020-03-25 04:13] LABS: ALANINE AMINOTRANSFERASE 15 U/L (12-78); ALKALINE PHOSPHATASE 42 U/L (45-117); ANION GAP 12 mmol/L (5-15); BILIRUBIN,TOTAL 0.7 mg/dL (0.2-1.0); CALCIUM 8.7 mg/dL (8.5-10.1); CREATININE 4.45 mg/dL (0.55-1.02); TOTAL PROTEIN 6.3 g/dL (6.4-8.2)
[2020-03-25] MEDS: SUCRALFATE 1 GM/10 ML UDC PO SCH ×4 (06:29→21:35)
[2020-03-25] MEDS: HYDROcodone/APAP 5/325 TABLET PO PRN (06:35)
[2020-03-25] MEDS: INSULIN LISPRO 100 UNITS/ML, PEN SQ-INSULIN SCH ×4 (06:38→21:43)
[2020-03-25] MEDS: PANTOPRAZOLE 40MG TABLET PO SCH ×2 (08:41→21:42)
[2020-03-25] MEDS: SEVELAMER CARBONATE 800MG TAB PO SCH ×3 (08:41→17:24)
[2020-03-25] MEDS: ROPINIROLE 0.25MG TABLET PO SCH (08:41)
[2020-03-25] MEDS: FUROSEMIDE 80 MG TABLET PO SCH ×2 (08:42→21:43)
[2020-03-25] MEDS: LISINOPRIL 10 MG TABLET PO SCH (08:43)
[2020-03-25] MEDS: CARVEDILOL 6.25 MG TABLET PO SCH ×2 (08:43→21:40)
[2020-03-25] MEDS: AMLODIPINE 5 MG TABLET PO SCH (08:43)
[2020-03-25] MEDS: SODIUM CHLORIDE FLUSH 10ML SYR IVF SCH ×2 (08:43→21:00)
[2020-03-25 08:45] VITALS: BP 140/42
[2020-03-25 11:28] VITALS: BP 140/42
[2020-03-25 13:04] VITALS: BP 135/70
[2020-03-25 16:16] VITALS: BP 172/74
[2020-03-25 19:40] VITALS: BP 162/69
[2020-03-25] MEDS: ONDANSETRON 2MG/ML, 2ML IV PRN (19:56)
[2020-03-25] MEDS ORDERED: FUROSEMIDE 40 MG TABLET ONE (21:14)
[2020-03-26 01:07] VITALS: BP 183/72
[2020-03-26] MEDS: HYDROcodone/APAP 5/325 TABLET PO PRN ×2 (01:19→14:52)
[2020-03-26] MEDS ORDERED: BISACODYL 10 MG SUPP PR PRN (01:30)
[2020-03-26 06:46] LABS: BASOPHILS % (AUTO) 1 % (0-1); EOSINOPHILS % (AUTO) 3 % (1-7); LYMPHOCYTES % (AUTO) 22 % (22-44); MEAN CORPUSCULAR HEMOGLOBIN 32.3 pg (27.0-34.8); MEAN PLATELET VOLUME 6.9 fL (7.4-10.4); MONOCYTES % (AUTO) 9 % (2-9); NEUTROPHILS % (AUTO) 65 % (42-75); PLATELET COUNT 130 x10^3/uL (130-400); RED BLOOD COUNT 3.06 x10^6/uL (3.82-5.3); RED CELL DISTRIBUTION WIDTH 18.3 % (9.6-15.2)
[2020-03-26 06:48] LABS: MD NO
[2020-03-26 06:59] LABS: ALBUMIN 3.6 g/dL (3.4-5.0); ANION GAP 10 mmol/L (5-15); CALCIUM 8.9 mg/dL (8.5-10.1); CHLORIDE 99 mmol/L (98-107)
[2020-03-26 07:03] LABS: ALANINE AMINOTRANSFERASE 15 U/L (12-78); ALKALINE PHOSPHATASE 57 U/L (45-117); BILIRUBIN,TOTAL 0.6 mg/dL (0.2-1.0); CREATININE 6.78 mg/dL (0.55-1.02)
[2020-03-26 07:04] VITALS: BP 150/69
[2020-03-26] MEDS: SUCRALFATE 1 GM/10 ML UDC PO SCH ×4 (08:52→20:59)
[2020-03-26] MEDS: PANTOPRAZOLE 40MG TABLET PO SCH ×2 (08:53→20:58)
[2020-03-26] MEDS: FUROSEMIDE 80 MG TABLET PO SCH ×2 (08:53→20:58)
[2020-03-26] MEDS: SEVELAMER CARBONATE 800MG TAB PO SCH ×3 (08:53→18:04)
[2020-03-26] MEDS: ROPINIROLE 0.25MG TABLET PO SCH (08:53)
[2020-03-26] MEDS: POLYETHYLENE GLYCOL 17 GM PACKET PO SCH (08:53)
[2020-03-26] MEDS: INSULIN LISPRO 100 UNITS/ML, PEN SQ-INSULIN SCH ×4 (08:54→20:57)
[2020-03-26] MEDS: SODIUM CHLORIDE FLUSH 10ML SYR IVF SCH ×2 (08:54→20:59)
[2020-03-26] MEDS: CARVEDILOL 6.25 MG TABLET PO SCH ×2 (09:00→20:59)
[2020-03-26] MEDS: LISINOPRIL 10 MG TABLET PO SCH (09:00)
[2020-03-26 13:00] VITALS: BP 124/52
[2020-03-26 14:50] VITALS: BP 127/66
[2020-03-26] MEDS: AMLODIPINE 5 MG TABLET PO SCH (15:09)
[2020-03-26 18:58] VITALS: BP 101/62
[2020-03-26 21:00] VITALS: BP 109/64
[2020-03-27 01:04] VITALS: BP 115/66
[2020-03-27 05:34] LABS: BASOPHILS % (AUTO) 1 % (0-1); EOSINOPHILS % (AUTO) 4 % (1-7); LYMPHOCYTES % (AUTO) 20 % (22-44); MEAN CORPUSCULAR HEMOGLOBIN 32.2 pg (27.0-34.8); MEAN PLATELET VOLUME 7.2 fL (7.4-10.4); MONOCYTES % (AUTO) 11 % (2-9); NEUTROPHILS % (AUTO) 66 % (42-75); PLATELET COUNT 162 x10^3/uL (130-400); RED BLOOD COUNT 3.61 x10^6/uL (3.82-5.3); RED CELL DISTRIBUTION WIDTH 18.3 % (9.6-15.2)
[2020-03-27 05:36] VITALS: BP 125/64
[2020-03-27 05:36] LABS: MD NO
[2020-03-27] MEDS: SUCRALFATE 1 GM/10 ML UDC PO SCH ×3 (05:40→15:46)
[2020-03-27 05:42] LABS: ALBUMIN 3.5 g/dL (3.4-5.0); ANION GAP 10 mmol/L (5-15); CALCIUM 8.9 mg/dL (8.5-10.1); CHLORIDE 99 mmol/L (98-107)
[2020-03-27 05:47] LABS: ALANINE AMINOTRANSFERASE 17 U/L (12-78); ALKALINE PHOSPHATASE 72 U/L (45-117); BILIRUBIN,TOTAL 0.6 mg/dL (0.2-1.0); CREATININE 4.45 mg/dL (0.55-1.02); TOTAL PROTEIN 6.4 g/dL (6.4-8.2)
[2020-03-27 06:54] VITALS: BP 114/68
[2020-03-27] MEDS: POLYETHYLENE GLYCOL 17 GM PACKET PO SCH (08:59)
[2020-03-27] MEDS: PANTOPRAZOLE 40MG TABLET PO SCH (09:00)
[2020-03-27] MEDS: SEVELAMER CARBONATE 800MG TAB PO SCH ×2 (09:00→12:14)
[2020-03-27] MEDS: ROPINIROLE 0.25MG TABLET PO SCH (09:00)
[2020-03-27] MEDS: FUROSEMIDE 80 MG TABLET PO SCH (09:01)
[2020-03-27] MEDS: AMLODIPINE 5 MG TABLET PO SCH (09:02)
[2020-03-27] MEDS: CARVEDILOL 6.25 MG TABLET PO SCH (09:02)
[2020-03-27] MEDS: LISINOPRIL 10 MG TABLET PO SCH (09:02)
[2020-03-27] MEDS: SODIUM CHLORIDE FLUSH 10ML SYR IVF SCH (09:03)
[2020-03-27] MEDS: INSULIN LISPRO 100 UNITS/ML, PEN SQ-INSULIN SCH ×2 (09:03→12:15)
[2020-03-27 12:10] VITALS: BP 137/91
== END 2020-03-27 16:49 | disposition home or self-care (01) | DRG 377 ==
LOC: ED 03-22 01:23 → EDIP 03-22 02:01 → CCU 03-22 02:12 → 4EST 03-25 11:07
PROVIDERS: ADMIT Family Medicine; ATTEND Family Medicine
PROC: 0DB68ZX Excision of Stomach, Via Natural or Artificial Opening Endoscopic, Diagnostic (ICD-10-PCS; 2020-03-22)
PROC: 30233N1 Transfusion of Nonautologous Red Blood Cells into Peripheral Vein, Percutaneous Approach (ICD-10-PCS; 2020-03-22)
PROC: 0W3P8ZZ Control Bleeding in Gastrointestinal Tract, Via Natural or Artificial Opening Endoscopic (ICD-10-PCS; principal; 2020-03-22 14:15)
PROC: 0T9B70Z Drainage of Bladder with Drainage Device, Via Natural or Artificial Opening (ICD-10-PCS; 2020-03-23)
DX: K26.4 Chronic or unspecified duodenal ulcer with hemorrhage (principal); N18.6 End stage renal disease; I42.9 Cardiomyopathy, unspecified; I50.22 Chronic systolic (congestive) heart failure; D62 Acute posthemorrhagic anemia; I13.2 Hypertensive heart and chronic kidney disease with heart failure and with stage 5 chronic kidney disease, or end stage renal disease; N39.0 Urinary tract infection, site not specified; Z20.822 Contact with and (suspected) exposure to COVID-19; Z99.2 Dependence on renal dialysis; D63.8 Anemia in other chronic diseases classified elsewhere; E10.22 Type 1 diabetes mellitus with diabetic chronic kidney disease; E10.65 Type 1 diabetes mellitus with hyperglycemia; E78.5 Hyperlipidemia, unspecified; E87.5 Hyperkalemia; G25.81 Restless legs syndrome; I34.0 Nonrheumatic mitral (valve) insufficiency; J45.909 Unspecified asthma, uncomplicated; Z79.4 Long term (current) use of insulin; Z79.82 Long term (current) use of aspirin; Z82.49 Family history of ischemic heart disease and other diseases of the circulatory system; Z83.3 Family history of diabetes mellitus; Z87.891 Personal history of nicotine dependence; Z90.49 Acquired absence of other specified parts of digestive tract; Z90.710 Acquired absence of both cervix and uterus; Z91.048 Other nonmedicinal substance allergy status
CPT/HCPCS: 36415; 36430; 80048; 80053; 81001; 82728; 82962; 83036; 83540; 83550; 83735; 83880; 84100; 84484; 85014; 85018; 85025; 85610; 85730; 86850; 86900; 86923; 87077; 87081; 87086; 87186; 87340; 87635; 88305; 90935; 93005; 96374; 96375; 99291; G0378; J0882; J2250; J2405; J3010; C9113; J1815; J2270; P9016

== ENCOUNTER 2020-04-26 10:36 | Inpatient (IN) | payer BC, MEDICARE ==
[~2020-04-26] VITALS: Ht 157.5 cm; Wt 61.4 kg
[~2020-04-26 10:36] MED LIST changes: +HYDR-1067 PO
--- NOTE | 2020-04-26 10:44 | NUR ---
EKG IN TRIAGE
[2020-04-26] MEDS ORDERED: SODIUM CHLORIDE FLUSH 10ML SYR IVF ONE (11:00)
[2020-04-26] MEDS ORDERED: PANTOPRAZOLE 80 MG in SODIUM CHLORIDE 0.9% 100 ML IV SCH (11:00)
[2020-04-26] MEDS ORDERED: PANTOPRAZOLE 80 MG in SODIUM CHLORIDE 0.9% 50 ML IVPB ONE (11:00)
[2020-04-26 11:20] LABS: BASOPHILS % (AUTO) 1 % (0-1); EOSINOPHILS % (AUTO) 3 % (1-7); LYMPHOCYTES % (AUTO) 21 % (22-44); MD NO; MEAN CORPUSCULAR HEMOGLOBIN 32.6 pg (27.0-34.8); MEAN CORPUSCULAR HGB CONC 34.3 g/dL (32.4-35.8); MEAN PLATELET VOLUME 7.5 fL (7.4-10.4); MONOCYTES % (AUTO) 8 % (2-9); NEUTROPHILS % (AUTO) 67 % (42-75); PLATELET COUNT 156 x10^3/uL (130-400); RED BLOOD COUNT 3.15 x10^6/uL (3.82-5.3); RED CELL DISTRIBUTION WIDTH 19.5 % (9.6-15.2)
[2020-04-26 11:26] LABS: INTERNATIONAL NORMALIZED RATIO 1.14 (0.93-1.1); PROTHROMBIN TIME 12.2 Seconds (9.6-11.5)
[2020-04-26 11:27] LABS: ALBUMIN 3.3 g/dL (3.4-5.0); ANION GAP 8 mmol/L (5-15); CALCIUM 9.3 mg/dL (8.5-10.1); CHLORIDE 99 mmol/L (98-107)
[2020-04-26 11:31] LABS: ALANINE AMINOTRANSFERASE 18 U/L (12-78); ALKALINE PHOSPHATASE 108 U/L (45-117); BILIRUBIN,TOTAL 0.7 mg/dL (0.2-1.0); TOTAL PROTEIN 7.2 g/dL (6.4-8.2)
--- NOTE | 2020-04-26 12:24 | NUR ---
Pt from dialysis for concernd about low Hgb. Pt hypertensive on arrival, denies CP. Skin color good. Pt appears weak and fatigues, has nausea. BLE edema. PIV placed. Protonix bolus complete. Handoff report to DARREL Albert. Hospitalist at bedside.
--- NOTE | 2020-04-26 12:30 | NUR ---
Hospitalist at bedside, aware of elevated BP. Pt to tele.
[2020-04-26] MEDS ORDERED: hydrALAzine 20 MG/ML, 1ML IVPush PRN (13:00)
[2020-04-26] MEDS ORDERED: OXYcodone IR 5MG TABLET PO PRN (13:00)
[2020-04-26] MEDS ORDERED: LACTATED RINGERS 1,000 ML IV SCH (13:00)
[2020-04-26] MEDS ORDERED: DEXTROSE 4 GM TAB.CHEW PO PRN (13:00)
[2020-04-26] MEDS ORDERED: ONDANSETRON 2MG/ML, 2ML IVPush PRN (13:00)
[2020-04-26] MEDS ORDERED: METOCLOPRAMIDE 5 MG/ML, 2ML IVPush PRN (13:00)
[2020-04-26] MEDS ORDERED: ACETAMINOPHEN 325 MG TABLET PO PRN (13:00)
[2020-04-26] MEDS ORDERED: BISACODYL 10 MG SUPP PR PRN (13:00)
[2020-04-26] MEDS ORDERED: GLUCAGON 1 MG IM PRN (13:00)
[2020-04-26] MEDS ORDERED: DEXTROSE 50%, 50ML SYRINGE IVPush PRN (13:00)
[2020-04-26] MEDS ORDERED: POLYETHYLENE GLYCOL 17 GM PACKET PO PRN (13:00)
[2020-04-26] MEDS ORDERED: LABETALOL 5MG/ML, 20ML IVPush PRN ×2 (13:00→18:00)
[2020-04-26 14:11] VITALS: BP 198/72
[2020-04-26] MEDS: PANTOPRAZOLE 80 MG in SODIUM CHLORIDE 0.9% 100 ML IV SCH ×2 (14:22→22:43)
[2020-04-26 14:51] VITALS: BP 181/72
[2020-04-26] MEDS: INSULIN LISPRO 100 UNITS/ML, PEN SQ-INSULIN SCH ×2 (15:14→20:36)
[2020-04-26 17:26] VITALS: BP 178/66
[2020-04-26] MEDS ORDERED: ARANESP 60 MCG/ML **ESRD SQ SCH ×2 (17:30→20:38)
[2020-04-26] MEDS: morphine SULFATE 10 MG/ML, 1ML IVPush PRN ×2 (17:36→22:20)
[2020-04-26 18:38] VITALS: BP 165/73
[2020-04-26 19:48] VITALS: BP 168/69
[2020-04-26] MEDS: CARVEDILOL 6.25 MG TABLET PO SCH (20:35)
[2020-04-26] MEDS: FUROSEMIDE 40 MG TABLET PO SCH (20:35)
[2020-04-26] MEDS: SODIUM CHLORIDE FLUSH 10ML SYR IVF SCH (20:35)
[2020-04-27 00:18] VITALS: BP 129/72
[2020-04-27 05:07] LABS: BASOPHILS % (AUTO) 1 % (0-1); EOSINOPHILS % (AUTO) 3 % (1-7); LYMPHOCYTES % (AUTO) 28 % (22-44); MEAN CORPUSCULAR HEMOGLOBIN 32.6 pg (27.0-34.8); MEAN CORPUSCULAR HGB CONC 33.7 g/dL (32.4-35.8); MEAN PLATELET VOLUME 8.2 fL (7.4-10.4); MONOCYTES % (AUTO) 7 % (2-9); NEUTROPHILS % (AUTO) 61 % (42-75); PLATELET COUNT 148 x10^3/uL (130-400); RED BLOOD COUNT 3.13 x10^6/uL (3.82-5.3); RED CELL DISTRIBUTION WIDTH 20.3 % (9.6-15.2)
[2020-04-27 05:10] LABS: MD NO
[2020-04-27 05:20] LABS: ALBUMIN 2.9 g/dL (3.4-5.0); ANION GAP 12 mmol/L (5-15); CALCIUM 8.8 mg/dL (8.5-10.1); CHLORIDE 101 mmol/L (98-107)
[2020-04-27 05:25] VITALS: BP 175/75
[2020-04-27 05:28] LABS: % IRON SATURATION 43 % (20-55); CREATININE 4.76 mg/dL (0.55-1.02); IRON LEVEL 91 mcg/dL (50-170); TOTAL IRON BINDING CAPACITY 212 mcg/dL (250-450)
[2020-04-27] MEDS: morphine SULFATE 10 MG/ML, 1ML IVPush PRN (05:46)
[2020-04-27 06:29] VITALS: BP 170/69
[2020-04-27] MEDS: AMLODIPINE 5 MG TABLET PO SCH (08:21)
[2020-04-27] MEDS: INSULIN LISPRO 100 UNITS/ML, PEN SQ-INSULIN SCH ×4 (08:21→20:18)
[2020-04-27] MEDS: CARVEDILOL 6.25 MG TABLET PO SCH ×2 (08:21→20:07)
[2020-04-27] MEDS: FUROSEMIDE 40 MG TABLET PO SCH ×2 (08:22→20:07)
[2020-04-27] MEDS: SODIUM CHLORIDE FLUSH 10ML SYR IVF SCH ×2 (08:24→20:07)
[2020-04-27] MEDS ORDERED: ONDANSETRON ODT 4 MG ONE (08:29)
[2020-04-27] MEDS ORDERED: ONDANSETRON ODT 4 MG PO PRN (08:30)
[2020-04-27] MEDS ORDERED: LISINOPRIL 10 MG TABLET PO SCH (09:00)
[2020-04-27] MEDS: PANTOPRAZOLE 80 MG in SODIUM CHLORIDE 0.9% 100 ML IV SCH (09:54)
[2020-04-27] MEDS ORDERED: OXYcodone 5 MG/5 ML ORAL.SOL UDC PO PRN (10:00)
[2020-04-27] MEDS ORDERED: ONDANSETRON 2MG/ML, 2ML IVPush PRN (10:00)
[2020-04-27] MEDS ORDERED: EPHEDRINE 50 MG/ML, 1ML IVPush PRN (10:00)
[2020-04-27] MEDS ORDERED: FENTANYL PF 100 MCG/2ML IV PRN (10:00)
[2020-04-27] MEDS ORDERED: hydrALAzine 20 MG/ML, 1ML IV PRN (10:00)
[2020-04-27] MEDS ORDERED: LABETALOL 5MG/ML, 20ML IV PRN (10:00)
[2020-04-27] MEDS ORDERED: ACETAMINOPHEN 325 MG TABLET PO PRN (10:00)
[2020-04-27] MEDS ORDERED: HYDROmorphone 1 MG/ML, 1ML INJ IVPush PRN (10:00)
[2020-04-27] MEDS: LOSARTAN 50MG TABLET PO SCH ×2 (10:39→20:05)
[2020-04-27 10:56] VITALS: BP 133/61
[2020-04-27] MEDS ORDERED: CHLORHEXIDINE 15 ML UDC ONE (13:28)
[2020-04-27] MEDS ORDERED: PROPOFOL 10 MG/ML, 20ML ONE ×2 (14:18→14:38)
[2020-04-27 15:53] VITALS: BP 118/65
[2020-04-27 18:42] VITALS: BP 102/60
[2020-04-28] MEDS: PANTOPRAZOLE 80 MG in SODIUM CHLORIDE 0.9% 100 ML IV SCH (01:03)
[2020-04-28 01:50] VITALS: BP 146/61
[2020-04-28 05:07] LABS: BASOPHILS % (AUTO) 1 % (0-1); EOSINOPHILS % (AUTO) 5 % (1-7); LYMPHOCYTES % (AUTO) 23 % (22-44); MEAN CORPUSCULAR HEMOGLOBIN 33.1 pg (27.0-34.8); MEAN CORPUSCULAR HGB CONC 33.8 g/dL (32.4-35.8); MEAN PLATELET VOLUME 8.2 fL (7.4-10.4); MONOCYTES % (AUTO) 8 % (2-9); NEUTROPHILS % (AUTO) 64 % (42-75); PLATELET COUNT 140 x10^3/uL (130-400); RED BLOOD COUNT 2.82 x10^6/uL (3.82-5.3); RED CELL DISTRIBUTION WIDTH 20.5 % (9.6-15.2)
[2020-04-28 05:08] LABS: MD NO
[2020-04-28 05:15] LABS: ALBUMIN 2.6 g/dL (3.4-5.0); ANION GAP 12 mmol/L (5-15); CALCIUM 8.2 mg/dL (8.5-10.1); CHLORIDE 101 mmol/L (98-107); CREATININE 6.02 mg/dL (0.55-1.02)
[2020-04-28 05:41] VITALS: BP 109/62
[2020-04-28] MEDS: CARVEDILOL 6.25 MG TABLET PO SCH ×2 (05:43→18:08)
[2020-04-28 06:53] VITALS: BP 122/55
[2020-04-28] MEDS: FUROSEMIDE 40 MG TABLET PO SCH ×2 (08:00→16:21)
[2020-04-28] MEDS: INSULIN LISPRO 100 UNITS/ML, PEN SQ-INSULIN SCH ×4 (08:31→21:34)
[2020-04-28] MEDS: SODIUM CHLORIDE FLUSH 10ML SYR IVF SCH ×2 (08:52→21:00)
[2020-04-28] MEDS: AMLODIPINE 5 MG TABLET PO SCH (09:00)
[2020-04-28] MEDS: LOSARTAN 50MG TABLET PO SCH ×2 (09:00→21:35)
[2020-04-28] MEDS: PANTOPRAZOLE 40MG TABLET PO SCH ×2 (10:59→21:35)
[2020-04-28] MEDS: HYDROcodone/APAP 10/325 MG TABLET PO PRN ×2 (14:47→22:43)
[2020-04-28 18:37] VITALS: BP 124/64
[2020-04-29 00:33] VITALS: BP 147/69
[2020-04-29 05:16] LABS: BASOPHILS % (AUTO) 1 % (0-1); EOSINOPHILS % (AUTO) 5 % (1-7); LYMPHOCYTES % (AUTO) 28 % (22-44); MEAN CORPUSCULAR HEMOGLOBIN 32.9 pg (27.0-34.8); MEAN CORPUSCULAR HGB CONC 33.9 g/dL (32.4-35.8); MEAN PLATELET VOLUME 7.8 fL (7.4-10.4); MONOCYTES % (AUTO) 9 % (2-9); NEUTROPHILS % (AUTO) 57 % (42-75); PLATELET COUNT 166 x10^3/uL (130-400); RED BLOOD COUNT 2.96 x10^6/uL (3.82-5.3); RED CELL DISTRIBUTION WIDTH 19.8 % (9.6-15.2)
[2020-04-29 05:29] LABS: ALBUMIN 2.8 g/dL (3.4-5.0); ANION GAP 6 mmol/L (5-15); CHLORIDE 98 mmol/L (98-107)
[2020-04-29 05:33] LABS: ALANINE AMINOTRANSFERASE 11 U/L (12-78); ALKALINE PHOSPHATASE 96 U/L (45-117); BILIRUBIN,TOTAL 0.4 mg/dL (0.2-1.0); CREATININE 4.41 mg/dL (0.55-1.02); TOTAL PROTEIN 6.2 g/dL (6.4-8.2)
[2020-04-29 05:35] LABS: MD NO
[2020-04-29] MEDS: CARVEDILOL 6.25 MG TABLET PO SCH (06:07)
[2020-04-29 07:40] VITALS: BP 155/54
[2020-04-29] MEDS: AMLODIPINE 5 MG TABLET PO SCH (08:13)
[2020-04-29] MEDS: PANTOPRAZOLE 40MG TABLET PO SCH (08:13)
[2020-04-29] MEDS: FUROSEMIDE 40 MG TABLET PO SCH (08:13)
[2020-04-29] MEDS: LOSARTAN 50MG TABLET PO SCH (08:13)
[2020-04-29] MEDS: SODIUM CHLORIDE FLUSH 10ML SYR IVF SCH (08:14)
[2020-04-29] MEDS: INSULIN LISPRO 100 UNITS/ML, PEN SQ-INSULIN SCH ×2 (08:21→11:39)
[2020-04-29] MEDS: HYDROcodone/APAP 10/325 MG TABLET PO PRN (08:21)
[2020-04-29] MEDS ORDERED: AMLODIPINE 5 MG TABLET PO SCH (11:00)
[2020-04-29] MEDS ORDERED: CARVEDILOL 12.5 MG TABLET PO SCH (11:00)
[2020-04-29 11:35] VITALS: BP 139/60
[2020-04-29 12:43] VITALS: BP 151/77
[2020-04-29] MEDS ORDERED: CARV12.52 PO (13:07)
[2020-04-29] MEDS ORDERED: AMLO-150 PO (13:07)
[2020-04-29] MEDS ORDERED: LOSA50TA2 PO (13:07)
[2020-04-29] MEDS ORDERED: PANT40TA6 PO (13:07)
[2020-05-03] MEDS ORDERED: ARANESP 60 MCG/ML **ESRD SQ SCH (17:00)
== END 2020-04-29 16:28 | disposition home health service (06) | DRG 377 ==
LOC: ED 10:39 → EDIP 11:40 → 4WST 12:58 → DCLOUNGE 04-29 16:08
PROVIDERS: ADMIT Family Medicine; ATTEND Family Medicine
PROC: 0DJD8ZZ Inspection of Lower Intestinal Tract, Via Natural or Artificial Opening Endoscopic (ICD-10-PCS; 2020-04-27)
PROC: 0D798ZZ Dilation of Duodenum, Via Natural or Artificial Opening Endoscopic (ICD-10-PCS; principal; 2020-04-27 11:30)
DX: K26.4 Chronic or unspecified duodenal ulcer with hemorrhage (principal); K85.90 Acute pancreatitis without necrosis or infection, unspecified; N18.6 End stage renal disease; I50.22 Chronic systolic (congestive) heart failure; I13.2 Hypertensive heart and chronic kidney disease with heart failure and with stage 5 chronic kidney disease, or end stage renal disease; K31.5 Obstruction of duodenum; K86.1 Other chronic pancreatitis; N25.0 Renal osteodystrophy; D63.8 Anemia in other chronic diseases classified elsewhere; E11.22 Type 2 diabetes mellitus with diabetic chronic kidney disease; E11.65 Type 2 diabetes mellitus with hyperglycemia; E78.5 Hyperlipidemia, unspecified; G25.81 Restless legs syndrome; I16.0 Hypertensive urgency; I08.3 Combined rheumatic disorders of mitral, aortic and tricuspid valves; Z79.4 Long term (current) use of insulin; Z79.899 Other long term (current) drug therapy; Z82.49 Family history of ischemic heart disease and other diseases of the circulatory system; Z83.3 Family history of diabetes mellitus; Z87.891 Personal history of nicotine dependence; Z90.710 Acquired absence of both cervix and uterus; Z99.2 Dependence on renal dialysis; Z90.49 Acquired absence of other specified parts of digestive tract; Z87.11 Personal history of peptic ulcer disease; Z20.822 Contact with and (suspected) exposure to COVID-19
CPT/HCPCS: 36415; 74176; 80053; 80069; 82306; 82728; 82787; 82947; 82962; 83540; 83550; 83690; 83735; 83970; 84100; 84550; 85014; 85018; 85025; 85610; 86850; 86900; 87635; 93005; 96365; 96375; 99285; G0378; J0882; J2704; Q0162; C1725; C9113; J0360; J1815; J2270; J7120